=== PATIENT | female | born 1970 | race Caucasian/White ===

== ENCOUNTER 2021-08-30 10:40 | Inpatient (IN) | payer BC, OTHER ==
--- NOTE | 2021-08-30 10:35 | EDM.PDOC ---
ED HPI GENERAL MEDICAL PROBLEM - General Chief Complaint: General Stated Complaint: FLU-LIKE SYMPTOMS, FAINTING Time Seen by Provider: 08/30/21 10:35 Source of Information: Reports: Patient, EMS, Old Records, RN, RN Notes Reviewed History Limitations: Reports: No Limitations - History of Present Illness INITIAL COMMENTS - FREE TEXT/NARRATIVE: Pt arrives from home by ambulance with c/o 4 days duration of fevers, gen. body aches, nausea, diarrhea, shortness of breath, and recurrent syncope & near syncope. Pt states she has been able to keep down some water and toast, but has watery diarrhea shortly after eating or drinking anything. Pt states she has been profoundly weak and fatigued and has not been out of bed much for the past few days. Denies cough or chest pain. Pt is on chronic Coumadin therapy. Onset: Gradual Duration: Day(s): (4) Severity: Severe Improves with: Reports: None Worsens with: Reports: None Associated Symptoms: Reports: No Other Symptoms Generalized Pain Score (Numeric/FACES): 10 - Related Data Allergies Allergy/AdvReac Type Severity Reaction Status Date / Time diclofenac sodium Allergy Rash Verified 02/27/15 21:53 [From Voltaren] metoclopramide HCl Allergy Muscle Verified 04/18/15 21:18 [From Reglan] Aches Home Meds: Home Meds Famotidine [Pepcid AC] 20 mg PO BID 04/18/15 [History] Lisinopril 40 mg PO DAILY 04/18/15 [History] Warfarin Sodium 5 mg PO DAILY 04/18/15 [History] traMADol HCl [Tramadol HCl] 50 mg PO ASDIRECTED PRN 04/18/15 [History] Budesonide/Formoterol [Symbicort 160-4.5 MCG] 1 puff IH ASDIRECTED 08/30/21 [History] Warfarin [Coumadin] 7.5 mg PO ASDIRECTED 08/30/21 [History] Past Medical History HEENT History: Reports: Impaired Vision Cardiovascular History: Reports: Blood Clots/VTE/DVT, Hypertension Respiratory History: Reports: Asthma Other Respiratory History: DVT both legs letty. Gastrointestinal History: Reports: GERD Other Musculoskeletal History: fracture left elbow. and torn left rotator cuff. Endocrine/Metabolic History: Reports: Obesity/BMI 30+ - Past Surgical History Musculoskeletal Surgical History: Reports: Shoulder Surgery Social & Family History - Family History Family Medical History: No Pertinent Family History - Caffeine Use Caffeine Use: Reports: Coffee - Living Situation & Occupation Living situation: Reports: Single, with Family Occupation: Employed ED ROS GENERAL - Review of Systems Review Of Systems: Comprehensive ROS is negative, except as noted in HPI. ED EXAM, GENERAL - Physical Exam Exam: See Below Exam Limited By: No Limitations General Appearance: Alert, Anxious, Obese, Other (Acutely ill but non-toxic appearing) Eye Exam: Bilateral Eye: Normal Inspection (No scleral ictuerus) Nose: Normal Inspection, Normal Mucosa, No Blood Throat/Mouth: Normal Lips, Normal Voice, No Airway Compromise, Other (Dry oral mucosa) Head: Atraumatic, Normocephalic Neck: Normal Inspection Respiratory/Chest: No Respiratory Distress, Lungs Clear, No Accessory Muscle Use, Chest Non-Tender, Decreased Breath Sounds Cardiovascular: Regular Rate, Rhythm GI/Abdominal: Soft, Non-Tender, Abnormal Bowel Sounds (Slightly hyperactive) Back Exam: Normal Inspection Extremities: Normal Range of Motion, No Pedal Edema Neurological: Alert, Oriented, No Motor/Sensory Deficits Psychiatric: Anxious, Flat Affect Skin Exam: Warm, Dry, Intact, Normal Color, No Rash #1 Interpretation EKG Date: 08/30/21 Time: 11:03 Rhythm: Other (SR) Rate (Beats/Min): 87 [place]: Normal P-Wave: Present QRS: Normal ST-T: Normal QT: Normal Comparison: NA - No Prior EKG Course - Vital Signs Last Recorded V/S: Last Vital Signs Temp 101.6 F H 08/30/21 10:51 Pulse 88 08/30/21 10:51 Resp 26 H 08/30/21 10:51 BP 115/63 08/30/21 10:51 Pulse Ox 91 L 08/30/21 10:51 - Orders/Labs/Meds Orders: Active Orders 24 hr Category Date Time Status EKG 12 Lead [EKG Documentation Completion] [RC] STAT Care 08/30/21 10:37 Active Peripheral IV Care [RC] . DIRECTED Care 08/30/21 10:38 Active Chest 1V Frontal [CR] Stat Exams 08/30/21 11:26 Ordered CULTURE BLOOD [BC] Stat Lab 08/30/21 10:55 Received CULTURE BLOOD [BC] Stat Lab 08/30/21 11:00 Received D Dimer [D-DIMER QUANTITATIVE] [COAG] Stat Lab 08/30/21 11:00 Received FERRITIN [CHEM] Stat Lab 08/30/21 11:00 Received UA RFX ELVIRA AND CULT IF INDIC [URIN] Stat Lab 08/30/21 10:37 Ordered Sodium Chloride 0.9% [Normal Saline] 1,000 ml Med 08/30/21 11:25 Active IV .BOLUS Sodium Chloride 0.9% [Saline Flush] Med 08/30/21 10:38 Active 10 ml FLUSH ASDIRECTED PRN Blood Culture x2 Reflex Set [OM.PC] Stat Oth 08/30/21 10:36 Ordered Peripheral IV Insertion Adult [OM.PC] Stat Oth 08/30/21 10:37 Ordered Medication Orders Sodium Chloride (Normal Saline) 1,000 mls @ 999 mls/hr IV .BOLUS ONE Stop: 08/30/21 12:25 Last Admin: 08/30/21 11:33 Dose: 999 mls/hr Documented by: MAGO Sodium Chloride (Sodium Chloride 0.9% 10 Ml Syringe) 10 ml FLUSH ASDIRECTED PRN PRN Reason: Keep Vein Open Labs: Laboratory Tests 08/30/21 08/30/21 08/30/21 Range/Units 10:40 11:00 11:00 WBC 2.8 L (5.0-10.0) 10^3/uL RBC 4.61 (4.2-5.4) 10^6/uL Hgb 13.7 (12.0-16.0) g/dL Hct 40.4 (37.0-47.0) % MCV 87.6 D (80-100) fL MCH 29.7 (27.0-34.0) pg MCHC 33.9 (33.0-35.0) g/dL Plt Count 135 L D (150-450) 10^3/uL Neut % (Auto) 76.4 H (42.2-75.2) % Lymph % (Auto) 16.7 L (20.5-50.1) % [place] % (Auto) 6.9 (2-8) % Eos % (Auto) 0.0 L (1.0-3.0) % Baso % (Auto) 0.0 (0.0-1.0) % PT (9.0-12.0) SEC INR (0.9-1.2) APTT (22.0-34.0) SEC Sodium 127 L (136-145) mmol/L Potassium 3.4 L (3.5-5.1) mmol/L Chloride 92 L (98-107) mmol/L Carbon Dioxide 26 (21-32) mmol/L Anion Gap 12.4 (7-13) mEq/L BUN 16 (7-18) mg/dL Creatinine 1.06 H (0.55-1.02) mg/dL Est Cr Clr Drug Dosing 57.46 mL/min Estimated GFR (MDRD) 54 BUN/Creatinine Ratio 15.1 (No establ ref range) Glucose 108 H (70-99) mg/dL Lactic Acid (0.4-2.0) mmol/L Calcium 8.1 L (8.5-10.1) mg/dL Total Bilirubin 0.3 (0.2-1.0) mg/dL AST 43 H (15-37) U/L ALT 45 (14-59) U/L Alkaline Phosphatase 55 (46-116) U/L Troponin I High Sens 43 (<=51) pg/mL C-Reactive Protein 4.3 H (0.0-0.9) mg/dL Total Protein 7.1 (6.4-8.2) g/dL Albumin 2.9 L (3.4-5.0) g/dL Globulin 4.2 Albumin/Globulin Ratio 0.69 Influenza Type A RNA Negative (NEGATIVE) Influenza Type B RNA Negative (NEGATIVE) SARS-CoV-2 RNA (BILLY) Positive H (NEGATIVE) 08/30/21 08/30/21 Range/Units 11:00 11:00 WBC (5.0-10.0) 10^3/uL RBC (4.2-5.4) 10^6/uL Hgb (12.0-16.0) g/dL Hct (37.0-47.0) % MCV (80-100) fL MCH (27.0-34.0) pg MCHC (33.0-35.0) g/dL Plt Count (150-450) 10^3/uL Neut % (Auto) (42.2-75.2) % Lymph % (Auto) (20.5-50.1) % [place] % (Auto) (2-8) % Eos % (Auto) (1.0-3.0) % Baso % (Auto) (0.0-1.0) % PT 13.9 H (9.0-12.0) SEC INR 1.4 H (0.9-1.2) APTT 39.7 H (22.0-34.0) SEC Sodium (136-145) mmol/L Potassium (3.5-5.1) mmol/L Chloride (98-107) mmol/L Carbon Dioxide (21-32) mmol/L Anion Gap (7-13) mEq/L BUN (7-18) mg/dL Creatinine (0.55-1.02) mg/dL Est Cr Clr Drug Dosing mL/min Estimated GFR (MDRD) BUN/Creatinine Ratio (No establ ref range) Glucose (70-99) mg/dL Lactic Acid 0.8 (0.4-2.0) mmol/L Calcium (8.5-10.1) mg/dL Total Bilirubin (0.2-1.0) mg/dL AST (15-37) U/L ALT (14-59) U/L Alkaline Phosphatase (46-116) U/L Troponin I High Sens (<=51) pg/mL C-Reactive Protein (0.0-0.9) mg/dL Total Protein (6.4-8.2) g/dL Albumin (3.4-5.0) g/dL Globulin Albumin/Globulin Ratio Influenza Type A RNA (NEGATIVE) Influenza Type B RNA (NEGATIVE) SARS-CoV-2 RNA (BILLY) (NEGATIVE) Meds: Medications Generic Name Dose Route Start Last Admin Trade Name Freq PRN Reason Stop Dose Admin Sodium Chloride 1,000 mls @ 999 mls/hr 08/30/21 11:25 08/30/21 11:33 Normal Saline IV 08/30/21 12:25 999 mls/hr .BOLUS ONE Administration Sodium Chloride 10 ml 08/30/21 10:38 Sodium Chloride 0.9% 10 Ml Syringe FLUSH ASDIRECTED PRN Keep Vein Open Discontinued Medications Generic Name Dose Route Start Last Admin Trade Name Freq PRN Reason Stop Dose Admin Acetaminophen 975 mg 08/30/21 10:49 Acetaminophen 325 Mg Tab PO 08/30/21 10:50 NOW ONE Ondansetron HCl 4 mg 08/30/21 10:49 08/30/21 11:33 Ondansetron 4 Mg/2 Ml Sdv IV 08/30/21 10:50 4 mg ONETIME ONE Administration Departure - Departure Time of Disposition: 11:49 (admitted to Dr. Peterson) Disposition: Admitted As Inpatient 64 Condition: Fair Clinical Impression: Dehydration, Hyponatremia Syncope Qualifiers: Syncope type: vasovagal syncope Qualified Code(s): R55 - Syncope and collapse - Discharge Information *PRESCRIPTION DRUG MONITORING PROGRAM REVIEWED*: Not Applicable *COPY OF PRESCRIPTION DRUG MONITORING REPORT IN PATIENT KENNA: Not Applicable Forms: ED Department Discharge Sepsis Event Note (ED) - Focused Exam Vital Signs: Vital Signs Temp Pulse Resp BP Pulse Ox 08/30/21 10:51 101.6 F H 88 26 H 115/63 91 L - My Orders Last 24 Hours: My Active Orders 08/30/21 10:36 Blood Culture x2 Reflex Set [OM.PC] Stat 08/30/21 10:37 EKG 12 Lead [EKG Documentation Completion] [RC] STAT UA RFX ELVIRA AND CULT IF INDIC [URIN] Stat Peripheral IV Insertion Adult [OM.PC] Stat 08/30/21 10:38 Peripheral IV Care [RC] . DIRECTED Sodium Chloride 0.9% [Saline Flush] 10 ml FLUSH ASDIRECTED PRN 08/30/21 10:55 CULTURE BLOOD [BC] Stat 08/30/21 11:00 CULTURE BLOOD [BC] Stat D Dimer [D-DIMER QUANTITATIVE] [COAG] Stat FERRITIN [CHEM] Stat 08/30/21 11:25 Sodium Chloride 0.9% [Normal Saline] 1,000 ml IV .BOLUS 08/30/21 11:26 Chest 1V Frontal [CR] Stat - Assessment/Plan Last 24 Hours: My Active Orders 08/30/21 10:36 Blood Culture x2 Reflex Set [OM.PC] Stat 08/30/21 10:37 EKG 12 Lead [EKG Documentation Completion] [RC] STAT UA RFX ELVIRA AND CULT IF INDIC [URIN] Stat Peripheral IV Insertion Adult [OM.PC] Stat 08/30/21 10:38 Peripheral IV Care [RC] . DIRECTED Sodium Chloride 0.9% [Saline Flush] 10 ml FLUSH ASDIRECTED PRN 08/30/21 10:55 CULTURE BLOOD [BC] Stat 08/30/21 11:00 CULTURE BLOOD [BC] Stat D Dimer [D-DIMER QUANTITATIVE] [COAG] Stat FERRITIN [CHEM] Stat 08/30/21 11:25 Sodium Chloride 0.9% [Normal Saline] 1,000 ml IV .BOLUS 08/30/21 11:26 Chest 1V Frontal [CR] Stat
[2021-08-30] MEDS ORDERED: Acetaminophen 325 MG Tab PO ONE (10:49)
[2021-08-30] MEDS ORDERED: Ondansetron 4 MG/2 ML SDV IV ONE (10:49)
[2021-08-30 11:24] LABS: CORONAVIRUS COVID-19 NAA POSITIVE (NEGATIVE)
[2021-08-30] MEDS ORDERED: Sodium Chloride 0.9% 1,000 ML IV ONE (11:25)
[2021-08-30 11:26] LABS: PTT,PARTIAL THROMBOPLSTIN TIME 39.7 SEC (22.0-34.0)
[2021-08-30 11:29] LABS: ANION GAP 12.4 mEq/L (7-13)
--- NOTE | 2021-08-30 12:58 | PCM.HP ---
H&P History of Present Illness - General Date of Service: 08/30/21 Admit Problem/Dx: Admission Diagnosis/Problem Admission Diagnosis/Problem Gastroenteritis Source of Information: Patient, Provider History Limitations: Reports: No Limitations - History of Present Illness Initial Comments - Free Text/Narative: Betty is a 51-year-old woman with a past medical history significant for peripheral DVTs, pulmonary emboli, morbid obesity with a BMI of 51, essential hypertension, chronic asthma who presented to the emergency department on 08/30/2021 with complaints of acute onset weakness and mild nausea. Of note, she is unvaccinated against COVID-19. While in the emergency department her sodium was found to be low and she had borderline low potassium. She had been complain ing of having diarrhea up to 10 times daily. This is been going on for 1-2 days. She tried to drink fluids at home but was noting minimal appetite and worsening symptoms. She then presented to the emergency department for evaluation. While in the ED she was found to be Covid positive. She was not requiring any oxygen. She was admitted to the hospital for further evaluation of treatment of COVID-19. On the floor T-max 103.9. Onset of Symptoms: Reports: Today, Sudden Generalized Pain Score (Numeric/FACES): 10 - Related Data Allergies/Adverse Reactions: Allergies Allergy/AdvReac Type Severity Reaction Status Date / Time adhesive tape Allergy Rash Verified 08/30/21 12:41 diclofenac sodium Allergy Rash Verified 02/27/15 21:53 [From Voltaren] metoclopramide HCl Allergy Muscle Verified 04/18/15 21:18 [From Reglan] Aches Home Medications: Home Meds Famotidine [Pepcid AC] 20 mg PO DAILY 04/18/15 [History] Lisinopril 40 mg PO DAILY 04/18/15 [History] Warfarin Sodium 5 mg PO .THURSFRISATSUN 04/18/15 [History] Acetaminophen 500 mg PO Q4HR PRN 08/30/21 [History] Albuterol Sulfate [Albuterol Sulfate Hfa] 2 puff INH Q4HR PRN 08/30/21 [History] Budesonide/Formoterol [Symbicort 160-4.5 MCG] 2 puff IH BID 08/30/21 [History] Cyanocobalamin (Vitamin B-12) [Vitamin B-12] 1,000 mcg PO DAILY 08/30/21 [History] Patient's Own Medication [Ptom] 1 tab PO DAILY 08/30/21 [History] Warfarin [Coumadin] 7.5 mg PO .MONTUEWED 08/30/21 [History] Past Medical History HEENT History: Reports: Impaired Vision Cardiovascular History: Reports: Blood Clots/VTE/DVT, Hypertension Respiratory History: Reports: Asthma Other Respiratory History: DVT both legs letty. Gastrointestinal History: Reports: GERD Other Musculoskeletal History: fracture left elbow. and torn left rotator cuff. Endocrine/Metabolic History: Reports: Obesity/BMI 30+ - Infectious Disease History Infectious Disease History: Reports: Other (See Below) (unvaccinated against covid 19) - Past Surgical History HEENT Surgical History: Reports: Tonsillectomy Musculoskeletal Surgical History: Reports: Shoulder Surgery Social & Family History - Family History Family Medical History: No Pertinent Family History - Tobacco Use Tobacco Use Status *Q: Never Tobacco User - Caffeine Use Caffeine Use: Reports: None - Alcohol Use Alcohol Use History: Yes Alcohol Use Frequency: Rarely - Recreational Drug Use Recreational Drug Use: No - Living Situation & Occupation Living situation: Reports: Single, with Family Occupation: Employed H&P Review of Systems - Review of Systems: Review Of Systems: See Below General: Reports: Chills, Weakness, Fatigue, Decreased Appetite. Denies: Fever HEENT: Reports: No Symptoms Pulmonary: Reports: Cough. Denies: Shortness of Breath, Wheezing, Pleuritic Chest Pain, Sputum Cardiovascular: Reports: No Symptoms Gastrointestinal: Reports: Diarrhea, Decreased Appetite, Nausea. Denies: Black Stool, Bloody Stool, Distension, Vomiting Genitourinary: Reports: No Symptoms Musculoskeletal: Reports: Other (chronic pain diffuse) Skin: Reports: No Symptoms Psychiatric: Reports: No Symptoms Neurological: Reports: No Symptoms Hematologic/Lymphatic: Reports: No Symptoms Immunologic: Reports: No Symptoms Exam - Exam Exam: See Below - Vital Signs Vital Signs: Last Vital Signs Temp 101.6 F H 08/30/21 11:44 Pulse 88 08/30/21 10:51 Resp 26 H 08/30/21 10:51 BP 115/63 08/30/21 10:51 Pulse Ox 91 L 08/30/21 10:51 Weight: 316 lb - Exam Quality Assessment: DVT Prophylaxis. No: Supplemental Oxygen General: Oriented, Cooperative, Mild Distress HEENT: EOMI, Pupils Equal, Pupils Reactive Neck: Supple Lungs: Decreased Breath Sounds (diminished breath sounds throughout entire bilateral lung schmidt) Cardiovascular: Regular Rate, Regular Rhythm, Normal S1, Normal S2, Systolic Murmur (2/6 systolic). No: Tachycardia GI/Abdominal Exam: Soft, Non-Tender, Other (Obese. distant bowel sounds secondary to body habitus) (Female) Exam: Deferred Rectal (Female) Exam: Deferred Extremities: Non-Tender, No Pedal Edema, Other (brace on RLE. ) Skin: Warm, Dry Neuro Extensive - Mental Status: Alert, Oriented x3, Normal Mood/Affect, Normal Cognition Psychiatric: Alert, Normal Affect, Normal Mood - Patient Data Lab Results Last 24 hrs: Laboratory Results - last 24 hr 08/30/21 08/30/21 08/30/21 Range/Units 10:40 11:00 11:00 WBC 2.8 L (5.0-10.0) 10^3/uL RBC 4.61 (4.2-5.4) 10^6/uL Hgb 13.7 (12.0-16.0) g/dL Hct 40.4 (37.0-47.0) % MCV 87.6 D (80-100) fL MCH 29.7 (27.0-34.0) pg MCHC 33.9 (33.0-35.0) g/dL Plt Count 135 L D (150-450) 10^3/uL Neut % (Auto) 76.4 H (42.2-75.2) % Lymph % (Auto) 16.7 L (20.5-50.1) % [place] % (Auto) 6.9 (2-8) % Eos % (Auto) 0.0 L (1.0-3.0) % Baso % (Auto) 0.0 (0.0-1.0) % PT (9.0-12.0) SEC INR (0.9-1.2) APTT (22.0-34.0) SEC D-Dimer, Quantitative 521 H (0-400) ng/mL Sodium (136-145) mmol/L Potassium (3.5-5.1) mmol/L Chloride (98-107) mmol/L Carbon Dioxide (21-32) mmol/L Anion Gap (7-13) mEq/L BUN (7-18) mg/dL Creatinine (0.55-1.02) mg/dL Est Cr Clr Drug Dosing mL/min Estimated GFR (MDRD) BUN/Creatinine Ratio (No establ ref range) Glucose (70-99) mg/dL Lactic Acid (0.4-2.0) mmol/L Calcium (8.5-10.1) mg/dL Ferritin (8-252) mg/mL Total Bilirubin (0.2-1.0) mg/dL AST (15-37) U/L ALT (14-59) U/L Alkaline Phosphatase (46-116) U/L Troponin I High Sens (<=51) pg/mL C-Reactive Protein (0.0-0.9) mg/dL Total Protein (6.4-8.2) g/dL Albumin (3.4-5.0) g/dL Globulin Albumin/Globulin Ratio Influenza Type A RNA Negative (NEGATIVE) Influenza Type B RNA Negative (NEGATIVE) SARS-CoV-2 RNA (BILLY) Positive H (NEGATIVE) 08/30/21 08/30/21 08/30/21 Range/Units 11:00 11:00 11:00 WBC (5.0-10.0) 10^3/uL RBC (4.2-5.4) 10^6/uL Hgb (12.0-16.0) g/dL Hct (37.0-47.0) % MCV (80-100) fL MCH (27.0-34.0) pg MCHC (33.0-35.0) g/dL Plt Count (150-450) 10^3/uL Neut % (Auto) (42.2-75.2) % Lymph % (Auto) (20.5-50.1) % [place] % (Auto) (2-8) % Eos % (Auto) (1.0-3.0) % Baso % (Auto) (0.0-1.0) % PT 13.9 H (9.0-12.0) SEC INR 1.4 H (0.9-1.2) APTT 39.7 H (22.0-34.0) SEC D-Dimer, Quantitative (0-400) ng/mL Sodium 127 L (136-145) mmol/L Potassium 3.4 L (3.5-5.1) mmol/L Chloride 92 L (98-107) mmol/L Carbon Dioxide 26 (21-32) mmol/L Anion Gap 12.4 (7-13) mEq/L BUN 16 (7-18) mg/dL Creatinine 1.06 H (0.55-1.02) mg/dL Est Cr Clr Drug Dosing 57.46 mL/min Estimated GFR (MDRD) 54 BUN/Creatinine Ratio 15.1 (No establ ref range) Glucose 108 H (70-99) mg/dL Lactic Acid 0.8 (0.4-2.0) mmol/L Calcium 8.1 L (8.5-10.1) mg/dL Ferritin (8-252) mg/mL Total Bilirubin 0.3 (0.2-1.0) mg/dL AST 43 H (15-37) U/L ALT 45 (14-59) U/L Alkaline Phosphatase 55 (46-116) U/L Troponin I High Sens 43 (<=51) pg/mL C-Reactive Protein 4.3 H (0.0-0.9) mg/dL Total Protein 7.1 (6.4-8.2) g/dL Albumin 2.9 L (3.4-5.0) g/dL Globulin 4.2 Albumin/Globulin Ratio 0.69 Influenza Type A RNA (NEGATIVE) Influenza Type B RNA (NEGATIVE) SARS-CoV-2 RNA (BILLY) (NEGATIVE) 08/30/21 Range/Units 11:00 WBC (5.0-10.0) 10^3/uL RBC (4.2-5.4) 10^6/uL Hgb (12.0-16.0) g/dL Hct (37.0-47.0) % MCV (80-100) fL MCH (27.0-34.0) pg MCHC (33.0-35.0) g/dL Plt Count (150-450) 10^3/uL Neut % (Auto) (42.2-75.2) % Lymph % (Auto) (20.5-50.1) % [place] % (Auto) (2-8) % Eos % (Auto) (1.0-3.0) % Baso % (Auto) (0.0-1.0) % PT (9.0-12.0) SEC INR (0.9-1.2) APTT (22.0-34.0) SEC D-Dimer, Quantitative (0-400) ng/mL Sodium (136-145) mmol/L Potassium (3.5-5.1) mmol/L Chloride (98-107) mmol/L Carbon Dioxide (21-32) mmol/L Anion Gap (7-13) mEq/L BUN (7-18) mg/dL Creatinine (0.55-1.02) mg/dL Est Cr Clr Drug Dosing mL/min Estimated GFR (MDRD) BUN/Creatinine Ratio (No establ ref range) Glucose (70-99) mg/dL Lactic Acid (0.4-2.0) mmol/L Calcium (8.5-10.1) mg/dL Ferritin 942 H (8-252) mg/mL Total Bilirubin (0.2-1.0) mg/dL AST (15-37) U/L ALT (14-59) U/L Alkaline Phosphatase (46-116) U/L Troponin I High Sens (<=51) pg/mL C-Reactive Protein (0.0-0.9) mg/dL Total Protein (6.4-8.2) g/dL Albumin (3.4-5.0) g/dL Globulin Albumin/Globulin Ratio Influenza Type A RNA (NEGATIVE) Influenza Type B RNA (NEGATIVE) SARS-CoV-2 RNA (BILLY) (NEGATIVE) Result Diagrams: 08/30/21 11:00 08/30/21 11:00 Problem List Initiated/Reviewed/Updated: Yes Orders Last 24hrs: Active Orders 24 hr Category Date Time Status Admission Diagnosis [ADT] Stat ADT 08/30/21 11:49 Ordered Admission Status [Patient Status] [ADT] Routine ADT 08/30/21 11:49 Active Chest 1V Frontal [CR] Stat Exams 08/30/21 11:26 Taken CULTURE BLOOD [BC] Stat Lab 08/30/21 10:55 Received CULTURE BLOOD [BC] Stat Lab 08/30/21 11:00 Received UA RFX ELVIRA AND CULT IF INDIC [URIN] Stat Lab 08/30/21 10:37 Ordered Sodium Chloride 0.9% [Saline Flush] Med 08/30/21 10:38 Active 10 ml FLUSH ASDIRECTED PRN Blood Culture x2 Reflex Set [OM.PC] Stat Oth 08/30/21 10:36 Ordered Peripheral IV Insertion Adult [OM.PC] Stat Oth 08/30/21 10:37 Ordered Medication Orders Sodium Chloride (Sodium Chloride 0.9% 10 Ml Syringe) 10 ml FLUSH ASDIRECTED PRN PRN Reason: Keep Vein Open Assessment/Plan Comment:: ACUTE CONDITIONS: acute COVID 19 viral pneumonia acute gastroenteritis secondary to above hypovolemic hyponatremia 2/2 above Hypokalemia 2/2 above - on admit: febrile with tmax 103.9. Na 127. K 3.4 - O2 sats >90% on room air - unvaccinated Plan: - currently doesn't qualify for remdesivir or dexamethasone - imodium PRN for diarrhea - continue LR 1L at 125mL/hr - replace K with IV in ED - recheck labs early am - IS 10 times in a row every hour while awake - recommend covid 19 vaccination - continue warfarin Rx to dose with INR goal 2-3 given hx of DVT/PE and current COVID 19 CHRONIC CONDITIONS: - morbid obesity: BMI 45.7 on admit - chronic asthma: continue home inhalers - Essential HTN: continue lisinopril 40mg once daily - Chronic pain, diffuse: continue acetaminophen at home dose - hx of DVT/PE: warfarin Rx to dose with goal INR 23 - GERD without esophagitis: continue home med Code status: Full Code DVT prophylaxis: warfarin Rx to dose
--- NOTE | 2021-08-30 13:12 | CR ---
EXAMINATION: Chest 1V Frontal SEX: Female AGE: 51 years CLINICAL HISTORY: 51-year-old obese female with syncope. Comparison exam 01 May 2007. COVID positive. INTERPRETATION: Abnormal. 1. *Subtle peripheral "groundglass" densities right upper and left lower lobes, new since comparison 01 May 2007. 2. Old lingular fibrosis. 3. Generally good inspiratory effort. Normal cardiac silhouette (size and configuration). 4. No pulmonary vascular congestion, new cephalization of flow, alveolar edema or dependent pleural effusion. 5. No suspicious new parenchymal lung mass lesion or hilar/mediastinal lymphadenopathy. Normal midline tracheal bronchial airway. 6. New subchondral cystic lesions both humeral heads.
[2021-08-30] MEDS ORDERED: Polyethylene Glycol 3350 Powder 17 GM Packet PO PRN (13:14)
[2021-08-30] MEDS ORDERED: Lactated Ringers 1,000 ML IV SCH ×3 (13:15→22:00)
[2021-08-30] MEDS ORDERED: Loperamide 2 MG Cap PO PRN (13:18)
[2021-08-30] MEDS ORDERED: Acetaminophen 500 MG Tab PO ONE (13:39)
[2021-08-30] MEDS: Sodium Chloride 0.9% 10 ML Syringe FLUSH PRN (13:39)
[2021-08-30] MEDS ORDERED: Metoprolol Tartrate 25 MG Tab PO SCH (19:15)
[2021-08-30 19:26] LABS: ANION GAP 12.3 mEq/L (7-13)
[2021-08-30] MEDS ORDERED: Magnesium Sulfate/Water 2 GM in Premix Bag 1 BAG IV ONE (19:42)
[2021-08-30] MEDS ORDERED: Potassium Chloride 10 MEQ Tab.ER PO ONE (19:43)
[2021-08-30] MEDS: Acetaminophen 325 MG Tab PO PRN ×2 (19:43→23:17)
[2021-08-30] MEDS ORDERED: Metoprolol Tartrate 5 MG/5 ML SDV IVPUSH ONE ×2 (19:43→21:47)
[2021-08-30] MEDS ORDERED: REMDESIVIR 200 MG in Sodium Chloride 0.9% 250 ML IV ONE (20:01)
[2021-08-30] MEDS: Dexamethasone 6 MG TABLET PO SCH (20:46)
[2021-08-30] MEDS: Formoterol/Mometasone 200-5 MCG 8.8 GM Inhaler IH SCH (20:47)
--- NOTE | 2021-08-30 21:17 | PCM.SN.2 ---
- Free Text/Narrative Note: Was notified by nursing staff that patient was having increasing heart rates. Ordered stat EKG which showed atrial fibrillation with ventricular rates in the 130s 140s. Went into examined patient. She was resting comfortably no acute distress. Patient denied any palpitations, chest pains or pressures, shortness of breath. She states that she has no history of atrial fibrillation denies any cardiac history. Ordered 5 mg IV metoprolol and 25 mg p.o. metoprolol. Ordered stat magnesium and potassium and repleted accordingly. Addendumwas paged by nursing staff that patient was hypoxic requiring 1 to 2 L to maintain oxygen saturations of 90 to 91%. As noted in H&P patient is COVID- 19 positive. Discussed with patient risks and benefits of remdesivir and steroid treatment and patient was agreeable. Ordered remdesivir and p.o. dexamethasone. We will continue monitor patient closely. Patient's heart rate has improved with as needed IV metoprolol we will continue to monitor.
[2021-08-30] MEDS ORDERED: Diltiazem 25 MG/5 ML SDV IVPUSH ONE (22:39)
[2021-08-30] MEDS ORDERED: Diltiazem 125 MG in Sodium Chloride 0.9% 100 ML IV SCH (22:45)
[2021-08-30] MEDS: Metoprolol Tartrate 25 MG Tab PO SCH (23:15)
[2021-08-30] MEDS ORDERED: Lactated Ringers 500 ML IV ONE (23:45)
--- NOTE | 2021-08-31 06:27 | PCM.PN ---
- General Info Date of Service: 08/31/21 Admission Dx/Problem (Free Text): Admission Diagnosis/Problem Admission Diagnosis/Problem Gastroenteritis Subjective Update: See previous note. In brief overnight patient had acute hypoxic respiratory failure secondary to COVID-19 pneumonia. Patient was placed on dexamethasone and remdesivir. She also had atrial fibrillation with rapid ventricular response. Responded well to IV metoprolol and p.o. metoprolol and IV Cardizem. This a.m. patient states that her breathing is stable worse than yesterday but better than overnight. She denies any palpitations. States that she feels a discomfort when taking a deep breath. Denies any abdominal pain, nausea or vomiting. States that her diarrhea is significantly improved. Review of systems is negative except as listed above. - Patient Data Vitals - Most Recent: Last Vital Signs Temp 98.6 F 08/31/21 03:00 Pulse 107 H 08/31/21 03:00 Resp 22 H 08/31/21 03:00 BP 94/50 L 08/31/21 03:00 Pulse Ox 94 L 08/31/21 03:00 Weight - Most Recent: 300 lb 9.6 oz I&O - Last 24 Hours: Intake & Output 08/30/21 08/30/21 08/31/21 14:59 22:59 06:59 Intake Total 1000 360 Balance 1000 360 Lab Results Last 24 Hours: Laboratory Results - last 24 hr 08/30/21 08/30/21 08/30/21 Range/Units 10:40 11:00 11:00 WBC 2.8 L (5.0-10.0) 10^3/uL RBC 4.61 (4.2-5.4) 10^6/uL Hgb 13.7 (12.0-16.0) g/dL Hct 40.4 (37.0-47.0) % MCV 87.6 D (80-100) fL MCH 29.7 (27.0-34.0) pg MCHC 33.9 (33.0-35.0) g/dL Plt Count 135 L D (150-450) 10^3/uL Neut % (Auto) 76.4 H (42.2-75.2) % Lymph % (Auto) 16.7 L (20.5-50.1) % [place] % (Auto) 6.9 (2-8) % Eos % (Auto) 0.0 L (1.0-3.0) % Baso % (Auto) 0.0 (0.0-1.0) % PT (9.0-12.0) SEC INR (0.9-1.2) APTT (22.0-34.0) SEC D-Dimer, Quantitative 521 H (0-400) ng/mL Sodium (136-145) mmol/L Potassium (3.5-5.1) mmol/L Chloride (98-107) mmol/L Carbon Dioxide (21-32) mmol/L Anion Gap (7-13) mEq/L BUN (7-18) mg/dL Creatinine (0.55-1.02) mg/dL Est Cr Clr Drug Dosing mL/min Estimated GFR (MDRD) BUN/Creatinine Ratio (No establ ref range) Glucose (70-99) mg/dL Lactic Acid (0.4-2.0) mmol/L Calcium (8.5-10.1) mg/dL Magnesium (1.8-2.4) mg/dL Ferritin (8-252) mg/mL Total Bilirubin (0.2-1.0) mg/dL AST (15-37) U/L ALT (14-59) U/L Alkaline Phosphatase (46-116) U/L Troponin I High Sens (<=51) pg/mL C-Reactive Protein (0.0-0.9) mg/dL Total Protein (6.4-8.2) g/dL Albumin (3.4-5.0) g/dL Globulin Albumin/Globulin Ratio Influenza Type A RNA Negative (NEGATIVE) Influenza Type B RNA Negative (NEGATIVE) SARS-CoV-2 RNA (BILLY) Positive H (NEGATIVE) 08/30/21 08/30/21 08/30/21 Range/Units 11:00 11:00 11:00 WBC (5.0-10.0) 10^3/uL RBC (4.2-5.4) 10^6/uL Hgb (12.0-16.0) g/dL Hct (37.0-47.0) % MCV (80-100) fL MCH (27.0-34.0) pg MCHC (33.0-35.0) g/dL Plt Count (150-450) 10^3/uL Neut % (Auto) (42.2-75.2) % Lymph % (Auto) (20.5-50.1) % [place] % (Auto) (2-8) % Eos % (Auto) (1.0-3.0) % Baso % (Auto) (0.0-1.0) % PT 13.9 H (9.0-12.0) SEC INR 1.4 H (0.9-1.2) APTT 39.7 H (22.0-34.0) SEC D-Dimer, Quantitative (0-400) ng/mL Sodium 127 L (136-145) mmol/L Potassium 3.4 L (3.5-5.1) mmol/L Chloride 92 L (98-107) mmol/L Carbon Dioxide 26 (21-32) mmol/L Anion Gap 12.4 (7-13) mEq/L BUN 16 (7-18) mg/dL Creatinine 1.06 H (0.55-1.02) mg/dL Est Cr Clr Drug Dosing 57.46 mL/min Estimated GFR (MDRD) 54 BUN/Creatinine Ratio 15.1 (No establ ref range) Glucose 108 H (70-99) mg/dL Lactic Acid 0.8 (0.4-2.0) mmol/L Calcium 8.1 L (8.5-10.1) mg/dL Magnesium (1.8-2.4) mg/dL Ferritin (8-252) mg/mL Total Bilirubin 0.3 (0.2-1.0) mg/dL AST 43 H (15-37) U/L ALT 45 (14-59) U/L Alkaline Phosphatase 55 (46-116) U/L Troponin I High Sens 43 (<=51) pg/mL C-Reactive Protein 4.3 H (0.0-0.9) mg/dL Total Protein 7.1 (6.4-8.2) g/dL Albumin 2.9 L (3.4-5.0) g/dL Globulin 4.2 Albumin/Globulin Ratio 0.69 Influenza Type A RNA (NEGATIVE) Influenza Type B RNA (NEGATIVE) SARS-CoV-2 RNA (BILLY) (NEGATIVE) 08/30/21 08/30/21 08/30/21 Range/Units 11:00 11:00 18:47 WBC (5.0-10.0) 10^3/uL RBC (4.2-5.4) 10^6/uL Hgb (12.0-16.0) g/dL Hct (37.0-47.0) % MCV (80-100) fL MCH (27.0-34.0) pg MCHC (33.0-35.0) g/dL Plt Count (150-450) 10^3/uL Neut % (Auto) (42.2-75.2) % Lymph % (Auto) (20.5-50.1) % [place] % (Auto) (2-8) % Eos % (Auto) (1.0-3.0) % Baso % (Auto) (0.0-1.0) % PT (9.0-12.0) SEC INR (0.9-1.2) APTT (22.0-34.0) SEC D-Dimer, Quantitative (0-400) ng/mL Sodium 128 L (136-145) mmol/L Potassium 3.3 L (3.5-5.1) mmol/L Chloride 93 L (98-107) mmol/L Carbon Dioxide 26 (21-32) mmol/L Anion Gap 12.3 (7-13) mEq/L BUN (7-18) mg/dL Creatinine (0.55-1.02) mg/dL Est Cr Clr Drug Dosing mL/min Estimated GFR (MDRD) BUN/Creatinine Ratio (No establ ref range) Glucose (70-99) mg/dL Lactic Acid (0.4-2.0) mmol/L Calcium (8.5-10.1) mg/dL Magnesium 1.9 (1.8-2.4) mg/dL Ferritin 942 H (8-252) mg/mL Total Bilirubin (0.2-1.0) mg/dL AST (15-37) U/L ALT (14-59) U/L Alkaline Phosphatase (46-116) U/L Troponin I High Sens (<=51) pg/mL C-Reactive Protein (0.0-0.9) mg/dL Total Protein (6.4-8.2) g/dL Albumin (3.4-5.0) g/dL Globulin Albumin/Globulin Ratio Influenza Type A RNA (NEGATIVE) Influenza Type B RNA (NEGATIVE) SARS-CoV-2 RNA (BILLY) (NEGATIVE) 08/30/21 Range/Units 18:47 WBC (5.0-10.0) 10^3/uL RBC (4.2-5.4) 10^6/uL Hgb (12.0-16.0) g/dL Hct (37.0-47.0) % MCV (80-100) fL MCH (27.0-34.0) pg MCHC (33.0-35.0) g/dL Plt Count (150-450) 10^3/uL Neut % (Auto) (42.2-75.2) % Lymph % (Auto) (20.5-50.1) % [place] % (Auto) (2-8) % Eos % (Auto) (1.0-3.0) % Baso % (Auto) (0.0-1.0) % PT (9.0-12.0) SEC INR (0.9-1.2) APTT (22.0-34.0) SEC D-Dimer, Quantitative (0-400) ng/mL Sodium (136-145) mmol/L Potassium (3.5-5.1) mmol/L Chloride (98-107) mmol/L Carbon Dioxide (21-32) mmol/L Anion Gap (7-13) mEq/L BUN (7-18) mg/dL Creatinine (0.55-1.02) mg/dL Est Cr Clr Drug Dosing mL/min Estimated GFR (MDRD) BUN/Creatinine Ratio (No establ ref range) Glucose (70-99) mg/dL Lactic Acid (0.4-2.0) mmol/L Calcium (8.5-10.1) mg/dL Magnesium 1.8 (1.8-2.4) mg/dL Ferritin (8-252) mg/mL Total Bilirubin (0.2-1.0) mg/dL AST (15-37) U/L ALT (14-59) U/L Alkaline Phosphatase (46-116) U/L Troponin I High Sens (<=51) pg/mL C-Reactive Protein (0.0-0.9) mg/dL Total Protein (6.4-8.2) g/dL Albumin (3.4-5.0) g/dL Globulin Albumin/Globulin Ratio Influenza Type A RNA (NEGATIVE) Influenza Type B RNA (NEGATIVE) SARS-CoV-2 RNA (BILLY) (NEGATIVE) Med Orders - Current: Current Medications Acetaminophen (Acetaminophen 325 Mg Tab) 650 mg PO Q4H PRN PRN Reason: Fever Last Admin: 08/30/21 23:17 Dose: 650 mg Documented by: Albuterol (Albuterol 6.7 Gm Inhaler) 0 gm INH Q4HR PRN PRN Reason: Shortness of Breath Dexamethasone (Dexamethasone 6 Mg Tablet) 6 mg PO DAILY [facility] Stop: 09/08/21 09:01 Last Admin: 08/30/21 20:46 Dose: 6 mg Documented by: Famotidine (Famotidine 20 Mg Tab) 20 mg PO DAILY [facility] Remdesivir 100 mg/ Sodium (Chloride) 100 mls @ 100 mls/hr IV Q24H [facility] Stop: 09/03/21 09:59 Lactated Ringer's (Ringers, Lactated) 1,000 mls @ 75 mls/hr IV ASDIRECTED [facility] Last Admin: 08/31/21 00:41 Dose: 75 mls/hr Documented by: Loperamide HCl (Loperamide 2 Mg Cap) 2 mg PO ASDIRECTED PRN PRN Reason: Diarrhea Metoprolol Tartrate (Metoprolol Tartrate 25 Mg Tab) 50 mg PO Q12H [facility] Last Admin: 08/30/21 23:15 Dose: 50 mg Documented by: Mometasone Furoate/Formoterol Fumar (Formoterol/Mometasone 200-5 Mcg 8.8 Gm Inhaler) 2 puff IH BID [facility] Last Admin: 08/30/21 20:47 Dose: 2 puff Documented by: Polyethylene Glycol (Polyethylene Glycol 3350 Powder 17 Gm Packet) 17 gm PO DAILY PRN PRN Reason: Constipation Sodium Chloride (Sodium Chloride 0.9% 10 Ml Syringe) 10 ml FLUSH ASDIRECTED PRN PRN Reason: Keep Vein Open Last Admin: 08/30/21 13:39 Dose: 10 ml Documented by: Warfarin Sodium (Pharmacy To Dose - Warfarin) 0 dose .XX ASDIRECTED [facility] Discontinued Medications Acetaminophen (Acetaminophen 325 Mg Tab) 975 mg PO NOW ONE Stop: 08/30/21 10:50 Last Admin: 08/30/21 11:44 Dose: Not Given Documented by: Acetaminophen (Acetaminophen 500 Mg Tab) 1,000 mg PO ONETIME ONE Stop: 08/30/21 13:40 Last Admin: 08/30/21 13:47 Dose: 1,000 mg Documented by: Diltiazem HCl (Diltiazem 25 Mg/5 Ml Sdv) 20 mg IVPUSH ONETIME ONE Stop: 08/30/21 22:40 Last Admin: 08/30/21 23:18 Dose: 20 mg Documented by: Sodium Chloride (Normal Saline) 1,000 mls @ 999 mls/hr IV .BOLUS ONE Stop: 08/30/21 12:25 Last Admin: 08/30/21 11:33 Dose: 999 mls/hr Documented by: Lactated Ringer's (Ringers, Lactated) 1,000 mls @ 125 mls/hr IV ASDIRECTED [facility] Stop: 08/30/21 21:14 Last Infusion: 08/30/21 21:58 Dose: Infused Documented by: Magnesium Sulfate 2 gm/ Premix 50 mls @ 25 mls/hr IV ONETIME ONE Stop: 08/30/21 21:41 Last Admin: 08/30/21 20:20 Dose: 25 mls/hr Documented by: Remdesivir 200 mg/ Sodium (Chloride) 250 mls @ 250 mls/hr IV ONETIME ONE Stop: 08/30/21 21:00 Last Infusion: 08/30/21 21:57 Dose: Infused Documented by: Lactated Ringer's (Ringers, Lactated) 1,000 mls @ 100 mls/hr IV ASDIRECTED [facility] Last Admin: 08/30/21 22:00 Dose: 100 mls/hr Documented by: Diltiazem HCl 125 mg/ Sodium (Chloride) 125 mls @ 5 mls/hr IV TITRATE [facility]; Protocol Last Admin: 08/30/21 23:18 Dose: 5 mg/hr, 5 mls/hr Documented by: Lactated Ringer's (Ringers, Lactated) 500 mls @ 999 mls/hr IV .BOLUS ONE Stop: 08/31/21 00:15 Last Infusion: 08/31/21 00:37 Dose: Infused Documented by: Lisinopril (Lisinopril 20 Mg Tab) 40 mg PO DAILY [facility] Metoprolol Tartrate (Metoprolol Tartrate 25 Mg Tab) 25 mg PO Q12H [facility] Last Admin: 08/30/21 19:35 Dose: 25 mg Documented by: Metoprolol Tartrate (Metoprolol Tartrate 5 Mg/5 Ml Sdv) 5 mg IVPUSH ONETIME ONE Stop: 08/30/21 19:44 Last Admin: 08/30/21 20:03 Dose: 5 mg Documented by: Metoprolol Tartrate (Metoprolol Tartrate 5 Mg/5 Ml Sdv) 5 mg IVPUSH ONETIME ONE Stop: 08/30/21 21:48 Last Admin: 08/30/21 22:09 Dose: 5 mg Documented by: Ondansetron HCl (Ondansetron 4 Mg/2 Ml Sdv) 4 mg IV ONETIME ONE Stop: 08/30/21 10:50 Last Admin: 08/30/21 11:33 Dose: 4 mg Documented by: Potassium Chloride (Potassium Chloride 10 Meq Tab.Er) 40 meq PO ONETIME ONE Stop: 08/30/21 19:44 Last Admin: 08/30/21 20:21 Dose: 40 meq Documented by: - Exam Quality Assessment: Supplemental Oxygen General: Alert, Oriented HEENT: Pupils Equal Neck: Supple Lungs: Decreased Breath Sounds, Other (Crackles noted bilateral lung schmidt upper and lower, mild respiratory distress) Cardiovascular: Irregular Rhythm, Tachycardia GI/Abdominal Exam: Normal Bowel Sounds, Soft Back Exam: Normal Inspection Peripheral Pulses: 2+: Radial (L), Radial (R) Skin: Warm, Dry Neurological: No New Focal Deficit Psy/Mental Status: Alert - Patient Data Lab Results Last 24 hrs: Laboratory Results - last 24 hr 08/30/21 08/30/21 08/30/21 Range/Units 10:40 11:00 11:00 WBC 2.8 L (5.0-10.0) 10^3/uL RBC 4.61 (4.2-5.4) 10^6/uL Hgb 13.7 (12.0-16.0) g/dL Hct 40.4 (37.0-47.0) % MCV 87.6 D (80-100) fL MCH 29.7 (27.0-34.0) pg MCHC 33.9 (33.0-35.0) g/dL Plt Count 135 L D (150-450) 10^3/uL Neut % (Auto) 76.4 H (42.2-75.2) % Lymph % (Auto) 16.7 L (20.5-50.1) % [place] % (Auto) 6.9 (2-8) % Eos % (Auto) 0.0 L (1.0-3.0) % Baso % (Auto) 0.0 (0.0-1.0) % PT (9.0-12.0) SEC INR (0.9-1.2) APTT (22.0-34.0) SEC D-Dimer, Quantitative 521 H (0-400) ng/mL Sodium (136-145) mmol/L Potassium (3.5-5.1) mmol/L Chloride (98-107) mmol/L Carbon Dioxide (21-32) mmol/L Anion Gap (7-13) mEq/L BUN (7-18) mg/dL Creatinine (0.55-1.02) mg/dL Est Cr Clr Drug Dosing mL/min Estimated GFR (MDRD) BUN/Creatinine Ratio (No establ ref range) Glucose (70-99) mg/dL Lactic Acid (0.4-2.0) mmol/L Calcium (8.5-10.1) mg/dL Magnesium (1.8-2.4) mg/dL Ferritin (8-252) mg/mL Total Bilirubin (0.2-1.0) mg/dL AST (15-37) U/L ALT (14-59) U/L Alkaline Phosphatase (46-116) U/L Troponin I High Sens (<=51) pg/mL C-Reactive Protein (0.0-0.9) mg/dL Total Protein (6.4-8.2) g/dL Albumin (3.4-5.0) g/dL Globulin Albumin/Globulin Ratio Influenza Type A RNA Negative (NEGATIVE) Influenza Type B RNA Negative (NEGATIVE) SARS-CoV-2 RNA (BILLY) Positive H (NEGATIVE) 08/30/21 08/30/21 08/30/21 Range/Units 11:00 11:00 11:00 WBC (5.0-10.0) 10^3/uL RBC (4.2-5.4) 10^6/uL Hgb (12.0-16.0) g/dL Hct (37.0-47.0) % MCV (80-100) fL MCH (27.0-34.0) pg MCHC (33.0-35.0) g/dL Plt Count (150-450) 10^3/uL Neut % (Auto) (42.2-75.2) % Lymph % (Auto) (20.5-50.1) % [place] % (Auto) (2-8) % Eos % (Auto) (1.0-3.0) % Baso % (Auto) (0.0-1.0) % PT 13.9 H (9.0-12.0) SEC INR 1.4 H (0.9-1.2) APTT 39.7 H (22.0-34.0) SEC D-Dimer, Quantitative (0-400) ng/mL Sodium 127 L (136-145) mmol/L Potassium 3.4 L (3.5-5.1) mmol/L Chloride 92 L (98-107) mmol/L Carbon Dioxide 26 (21-32) mmol/L Anion Gap 12.4 (7-13) mEq/L BUN 16 (7-18) mg/dL Creatinine 1.06 H (0.55-1.02) mg/dL Est Cr Clr Drug Dosing 57.46 mL/min Estimated GFR (MDRD) 54 BUN/Creatinine Ratio 15.1 (No establ ref range) Glucose 108 H (70-99) mg/dL Lactic Acid 0.8 (0.4-2.0) mmol/L Calcium 8.1 L (8.5-10.1) mg/dL Magnesium (1.8-2.4) mg/dL Ferritin (8-252) mg/mL Total Bilirubin 0.3 (0.2-1.0) mg/dL AST 43 H (15-37) U/L ALT 45 (14-59) U/L Alkaline Phosphatase 55 (46-116) U/L Troponin I High Sens 43 (<=51) pg/mL C-Reactive Protein 4.3 H (0.0-0.9) mg/dL Total Protein 7.1 (6.4-8.2) g/dL Albumin 2.9 L (3.4-5.0) g/dL Globulin 4.2 Albumin/Globulin Ratio 0.69 Influenza Type A RNA (NEGATIVE) Influenza Type B RNA (NEGATIVE) SARS-CoV-2 RNA (BILLY) (NEGATIVE) 08/30/21 08/30/21 08/30/21 Range/Units 11:00 11:00 18:47 WBC (5.0-10.0) 10^3/uL RBC (4.2-5.4) 10^6/uL Hgb (12.0-16.0) g/dL Hct (37.0-47.0) % MCV (80-100) fL MCH (27.0-34.0) pg MCHC (33.0-35.0) g/dL Plt Count (150-450) 10^3/uL Neut % (Auto) (42.2-75.2) % Lymph % (Auto) (20.5-50.1) % [place] % (Auto) (2-8) % Eos % (Auto) (1.0-3.0) % Baso % (Auto) (0.0-1.0) % PT (9.0-12.0) SEC INR (0.9-1.2) APTT (22.0-34.0) SEC D-Dimer, Quantitative (0-400) ng/mL Sodium 128 L (136-145) mmol/L Potassium 3.3 L (3.5-5.1) mmol/L Chloride 93 L (98-107) mmol/L Carbon Dioxide 26 (21-32) mmol/L Anion Gap 12.3 (7-13) mEq/L BUN (7-18) mg/dL Creatinine (0.55-1.02) mg/dL Est Cr Clr Drug Dosing mL/min Estimated GFR (MDRD) BUN/Creatinine Ratio (No establ ref range) Glucose (70-99) mg/dL Lactic Acid (0.4-2.0) mmol/L Calcium (8.5-10.1) mg/dL Magnesium 1.9 (1.8-2.4) mg/dL Ferritin 942 H (8-252) mg/mL Total Bilirubin (0.2-1.0) mg/dL AST (15-37) U/L ALT (14-59) U/L Alkaline Phosphatase (46-116) U/L Troponin I High Sens (<=51) pg/mL C-Reactive Protein (0.0-0.9) mg/dL Total Protein (6.4-8.2) g/dL Albumin (3.4-5.0) g/dL Globulin Albumin/Globulin Ratio Influenza Type A RNA (NEGATIVE) Influenza Type B RNA (NEGATIVE) SARS-CoV-2 RNA (BILLY) (NEGATIVE) 08/30/21 Range/Units 18:47 WBC (5.0-10.0) 10^3/uL RBC (4.2-5.4) 10^6/uL Hgb (12.0-16.0) g/dL Hct (37.0-47.0) % MCV (80-100) fL MCH (27.0-34.0) pg MCHC (33.0-35.0) g/dL Plt Count (150-450) 10^3/uL Neut % (Auto) (42.2-75.2) % Lymph % (Auto) (20.5-50.1) % [place] % (Auto) (2-8) % Eos % (Auto) (1.0-3.0) % Baso % (Auto) (0.0-1.0) % PT (9.0-12.0) SEC INR (0.9-1.2) APTT (22.0-34.0) SEC D-Dimer, Quantitative (0-400) ng/mL Sodium (136-145) mmol/L Potassium (3.5-5.1) mmol/L Chloride (98-107) mmol/L Carbon Dioxide (21-32) mmol/L Anion Gap (7-13) mEq/L BUN (7-18) mg/dL Creatinine (0.55-1.02) mg/dL Est Cr Clr Drug Dosing mL/min Estimated GFR (MDRD) BUN/Creatinine Ratio (No establ ref range) Glucose (70-99) mg/dL Lactic Acid (0.4-2.0) mmol/L Calcium (8.5-10.1) mg/dL Magnesium 1.8 (1.8-2.4) mg/dL Ferritin (8-252) mg/mL Total Bilirubin (0.2-1.0) mg/dL AST (15-37) U/L ALT (14-59) U/L Alkaline Phosphatase (46-116) U/L Troponin I High Sens (<=51) pg/mL C-Reactive Protein (0.0-0.9) mg/dL Total Protein (6.4-8.2) g/dL Albumin (3.4-5.0) g/dL Globulin Albumin/Globulin Ratio Influenza Type A RNA (NEGATIVE) Influenza Type B RNA (NEGATIVE) SARS-CoV-2 RNA (BILLY) (NEGATIVE) Result Diagrams: 08/31/21 07:58 08/31/21 06:30 Sepsis Event Note - Evaluation Sepsis Screening Result: Sepsis Risk - Focused Exam Vital Signs: Vital Signs Temp Temp Pulse Pulse Resp BP BP 08/31/21 03:00 98.6 F 107 H 22 H 94/50 L 08/30/21 23:47 98.8 F 08/30/21 23:17 102.1 F H 08/30/21 23:15 140 H 107/73 08/30/21 23:00 102.1 F H 140 H 25 H 62/51 L 08/30/21 22:09 130 H 145/65 H 08/30/21 20:13 101.1 F H 08/30/21 20:03 134 H 115/68 08/30/21 19:47 103.1 F H 134 H 18 115/68 08/30/21 19:43 103.1 F H 08/30/21 19:35 68 115/68 Pulse Ox 08/31/21 03:00 94 L 08/30/21 23:47 08/30/21 23:17 08/30/21 23:15 08/30/21 23:00 90 L 08/30/21 22:09 08/30/21 20:13 08/30/21 20:03 08/30/21 19:47 88 L 08/30/21 19:43 08/30/21 19:35 - Problem List & Annotations (1) Acute respiratory failure with hypoxia SNOMED Code(s): 67942822, 291832875 Code(s): J96.01 - ACUTE RESPIRATORY FAILURE WITH HYPOXIA Status: Acute Current Visit: Yes (2) Pneumonia due to COVID-19 virus SNOMED Code(s): 228763098797998890 Code(s): U07.1 - COVID-19; J12.82 - PNEUMONIA DUE TO CORONAVIRUS DISEASE 2019 Status: Acute Current Visit: Yes (3) Atrial fibrillation SNOMED Code(s): 73835319 Code(s): I48.91 - UNSPECIFIED ATRIAL FIBRILLATION Status: Acute Current Visit: Yes (4) Atrial fibrillation with RVR SNOMED Code(s): 483175759564525 Code(s): I48.91 - UNSPECIFIED ATRIAL FIBRILLATION Status: Acute Current Visit: Yes - Problem List Review Problem List Initiated/Reviewed/Updated: Yes - My Orders Last 24 Hours: My Active Orders 08/30/21 20:01 Isolation [COMM] Stat 08/30/21 20:02 Nurse Communication: Isolation [RC] ASDIRECTED 08/30/21 20:15 dexAMETHasone 6 mg PO DAILY 08/30/21 21:45 Lactated Ringers [Ringers, Lactated] 1,000 ml IV ASDIRECTED 08/30/21 22:38 Metoprolol Tartrate [Lopressor] 50 mg PO Q12H 08/31/21 09:00 Remdesivir 100 mg Sodium Chloride 0.9% [Normal Saline AdvBag] 100 ml IV Q24H - Plan Plan:: # ACUTE CONDITIONS: Acute COVID 19 viral pneumonia Acute hypoxic respiratory failure 2/2 to above Acute gastroenteritis secondary to above Hypovolemic hyponatremia 2/2 above - Currently requiring oxygen via nasal cannula - full code - Continue remdesivir per protocol, dexamethasone per protocol, lab monitoring per protocol - Blood cultures negative - imodium PRN for diarrhea - improved - d/c fluids - encourage oral intake - replace K - IS while awake - continue warfarin Rx to dose with INR goal 2-3 given hx of DVT/PE and current COVID 19 # Hypokalemia 2/2 above -K 4.6 today - diarrhea significantly improved # Atrial fibrillation with rvr -new onset - likely secondary to above and obesity/likely ALYSSA -discussed possibility of PE but patient already on warfarin and now hemodynamically stable - CTA unlikely to change current management -metoprolol 25 mg PO BID - off diltiazem drip -recommend TTE as outpatient CHRONIC CONDITIONS: - morbid obesity: BMI 45.7 on admit - chronic asthma: continue home inhalers - Essential HTN: continue lisinopril 40mg once daily - Chronic pain, diffuse: continue acetaminophen at home dose - hx of DVT/PE: warfarin Rx to dose with goal INR 2-3 - GERD without esophagitis: continue home med Code status: Full Code DVT prophylaxis: warfarin Rx to dose Further care for acute hypoxic respiratory failure
[2021-08-31 07:27] LABS: ANION GAP 13.6 mEq/L (7-13); CHLORIDE,CL 97 mmol/L (98-107); SODIUM,NA 129 mmol/L (136-145)
[2021-08-31] MEDS: Famotidine 20 MG Tab PO SCH (08:00)
[2021-08-31] MEDS: Acetaminophen 325 MG Tab PO PRN (08:01)
[2021-08-31] MEDS: Dexamethasone 6 MG TABLET PO SCH (08:01)
[2021-08-31] MEDS: Formoterol/Mometasone 200-5 MCG 8.8 GM Inhaler IH SCH ×2 (08:03→21:24)
[2021-08-31] MEDS ORDERED: Lisinopril 20 MG Tab PO SCH (09:00)
[2021-08-31] MEDS: REMDESIVIR 100 MG in Sodium Chloride 0.9% 100 ML IV SCH (09:13)
[2021-08-31] MEDS: Metoprolol Tartrate 25 MG Tab PO SCH ×2 (10:11→21:37)
[2021-08-31] MEDS ORDERED: Warfarin 2 MG Tab PO ONE (14:00)
[2021-09-01] MEDS: Acetaminophen 325 MG Tab PO PRN (00:50)
--- NOTE | 2021-09-01 07:00 | PCM.PN ---
- General Info Date of Service: 09/01/21 Admission Dx/Problem (Free Text): Admission Diagnosis/Problem Admission Diagnosis/Problem Gastroenteritis Subjective Update: Patient required increasing oxygen overnight to 6 L via nasal cannula. This a.m. patient states that she feels her breathing is about the same and actually may be slightly improved from prior night. States he is having more nausea and side some lightheadedness with standing today. Patient denies any further diarrhea. Remainder of review of systems was negative except those listed above. - Patient Data Vitals - Most Recent: Last Vital Signs Temp 98 F 09/01/21 04:00 Pulse 80 09/01/21 04:00 Resp 20 09/01/21 04:00 BP 103/66 09/01/21 04:00 Pulse Ox 95 09/01/21 04:00 Weight - Most Recent: 311 lb 11.2 oz I&O - Last 24 Hours: Intake & Output 08/31/21 08/31/21 09/01/21 14:59 22:59 06:59 Intake Total 820 660 300 Balance 820 660 300 Lab Results Last 24 Hours: Laboratory Results - last 24 hr 08/31/21 08/31/21 08/31/21 Range/Units 06:30 07:58 07:58 WBC 2.3 L (5.0-10.0) 10^3/uL RBC 4.87 (4.2-5.4) 10^6/uL Hgb 14.4 (12.0-16.0) g/dL Hct 42.5 (37.0-47.0) % MCV 87.3 (80-100) fL MCH 29.6 (27.0-34.0) pg MCHC 33.9 (33.0-35.0) g/dL Plt Count 130 L (150-450) 10^3/uL PT 15.8 H (9.0-12.0) SEC INR 1.6 H (0.9-1.2) Sodium 129 L (136-145) mmol/L Potassium 4.6 (3.5-5.1) mmol/L Chloride 97 L (98-107) mmol/L Carbon Dioxide 23 (21-32) mmol/L Anion Gap 13.6 H (7-13) mEq/L BUN 13 (7-18) mg/dL Creatinine 0.95 (0.55-1.02) mg/dL Est Cr Clr Drug Dosing 69.08 mL/min Estimated GFR (MDRD) > 60 BUN/Creatinine Ratio 13.7 (No establ ref range) Glucose 118 H (70-99) mg/dL Calcium 8.0 L (8.5-10.1) mg/dL Total Bilirubin 0.2 (0.2-1.0) mg/dL AST 52 H (15-37) U/L ALT 39 (14-59) U/L Alkaline Phosphatase 47 (46-116) U/L Total Protein 6.6 (6.4-8.2) g/dL Albumin 2.4 L (3.4-5.0) g/dL Globulin 4.2 Albumin/Globulin Ratio 0.57 Urine Color (YELLOW) Urine Appearance (CLEAR) Urine pH (5.0-9.0) Ur Specific [place] (1.005-1.030) Urine Protein (NEGATIVE) Urine Glucose (UA) (NEGATIVE) Urine Ketones (NEGATIVE) Urine Occult Blood (NEGATIVE) Urine Nitrite (NEGATIVE) Urine Bilirubin (NEGATIVE) Urine Urobilinogen (0.2-1.0) mg/dL Ur Leukocyte Esterase (NEGATIVE) Urine RBC (0-5) /HPF Urine WBC (0-5/HPF) /HPF Ur Epithelial Cells (NOT SEEN) /HPF Amorphous Sediment (NOT SEEN) /HPF Urine Bacteria (0-FEW/HPF) /HPF 09/01/21 Range/Units 00:10 WBC (5.0-10.0) 10^3/uL RBC (4.2-5.4) 10^6/uL Hgb (12.0-16.0) g/dL Hct (37.0-47.0) % MCV (80-100) fL MCH (27.0-34.0) pg MCHC (33.0-35.0) g/dL Plt Count (150-450) 10^3/uL PT (9.0-12.0) SEC INR (0.9-1.2) Sodium (136-145) mmol/L Potassium (3.5-5.1) mmol/L Chloride (98-107) mmol/L Carbon Dioxide (21-32) mmol/L Anion Gap (7-13) mEq/L BUN (7-18) mg/dL Creatinine (0.55-1.02) mg/dL Est Cr Clr Drug Dosing mL/min Estimated GFR (MDRD) BUN/Creatinine Ratio (No establ ref range) Glucose (70-99) mg/dL Calcium (8.5-10.1) mg/dL Total Bilirubin (0.2-1.0) mg/dL AST (15-37) U/L ALT (14-59) U/L Alkaline Phosphatase (46-116) U/L Total Protein (6.4-8.2) g/dL Albumin (3.4-5.0) g/dL Globulin Albumin/Globulin Ratio Urine Color Yellow (YELLOW) Urine Appearance Clear (CLEAR) Urine pH 6.5 (5.0-9.0) Ur Specific [place] 1.020 (1.005-1.030) Urine Protein 30 H (NEGATIVE) Urine Glucose (UA) Negative (NEGATIVE) Urine Ketones Negative (NEGATIVE) Urine Occult Blood Trace-intact H (NEGATIVE) Urine Nitrite Negative (NEGATIVE) Urine Bilirubin Negative (NEGATIVE) Urine Urobilinogen 0.2 (0.2-1.0) mg/dL Ur Leukocyte Esterase Small H (NEGATIVE) Urine RBC 0-5 (0-5) /HPF Urine WBC 10-20 H (0-5/HPF) /HPF Ur Epithelial Cells Moderate H (NOT SEEN) /HPF Amorphous Sediment Few (NOT SEEN) /HPF Urine Bacteria Moderate H (0-FEW/HPF) /HPF Ramiro Results Last 24 Hours: Microbiology 08/30/21 10:55 Aerobic Blood Culture - Preliminary Blood - Arm, Left NO GROWTH AFTER 1 DAY Anaerobic Blood Culture - Preliminary NO GROWTH AFTER 1 DAY 08/30/21 11:00 Aerobic Blood Culture - Preliminary Blood - Arm, Right NO GROWTH AFTER 1 DAY Anaerobic Blood Culture - Preliminary NO GROWTH AFTER 1 DAY Med Orders - Current: Current Medications Acetaminophen (Acetaminophen 325 Mg Tab) 650 mg PO Q4H PRN PRN Reason: Fever Last Admin: 09/01/21 00:50 Dose: 650 mg Documented by: Albuterol (Albuterol 6.7 Gm Inhaler) 0 gm INH Q4HR PRN PRN Reason: Shortness of Breath Dexamethasone (Dexamethasone 6 Mg Tablet) 6 mg PO DAILY [facility] Stop: 09/08/21 09:01 Last Admin: 08/31/21 08:01 Dose: 6 mg Documented by: Famotidine (Famotidine 20 Mg Tab) 20 mg PO DAILY [facility] Last Admin: 08/31/21 08:00 Dose: 20 mg Documented by: Remdesivir 100 mg/ Sodium (Chloride) 100 mls @ 100 mls/hr IV Q24H [facility] Stop: 09/03/21 09:59 Last Admin: 08/31/21 09:13 Dose: 100 mls/hr Documented by: Loperamide HCl (Loperamide 2 Mg Cap) 2 mg PO ASDIRECTED PRN PRN Reason: Diarrhea Metoprolol Tartrate (Metoprolol Tartrate 25 Mg Tab) 50 mg PO Q12H [facility] Last Admin: 08/31/21 21:37 Dose: 50 mg Documented by: Mometasone Furoate/Formoterol Fumar (Formoterol/Mometasone 200-5 Mcg 8.8 Gm Inhaler) 2 puff IH BID [facility] Last Admin: 08/31/21 21:24 Dose: 2 puff Documented by: Polyethylene Glycol (Polyethylene Glycol 3350 Powder 17 Gm Packet) 17 gm PO DAILY PRN PRN Reason: Constipation Sodium Chloride (Sodium Chloride 0.9% 10 Ml Syringe) 10 ml FLUSH ASDIRECTED PRN PRN Reason: Keep Vein Open Last Admin: 08/30/21 13:39 Dose: 10 ml Documented by: Warfarin Sodium (Pharmacy To Dose - Warfarin) 0 dose .XX ASDIRECTED [facility] Discontinued Medications Acetaminophen (Acetaminophen 325 Mg Tab) 975 mg PO NOW ONE Stop: 08/30/21 10:50 Last Admin: 08/30/21 11:44 Dose: Not Given Documented by: Acetaminophen (Acetaminophen 500 Mg Tab) 1,000 mg PO ONETIME ONE Stop: 08/30/21 13:40 Last Admin: 08/30/21 13:47 Dose: 1,000 mg Documented by: Diltiazem HCl (Diltiazem 25 Mg/5 Ml Sdv) 20 mg IVPUSH ONETIME ONE Stop: 08/30/21 22:40 Last Admin: 08/30/21 23:18 Dose: 20 mg Documented by: Sodium Chloride (Normal Saline) 1,000 mls @ 999 mls/hr IV .BOLUS ONE Stop: 08/30/21 12:25 Last Admin: 08/30/21 11:33 Dose: 999 mls/hr Documented by: Lactated Ringer's (Ringers, Lactated) 1,000 mls @ 125 mls/hr IV ASDIRECTED [facility] Stop: 08/30/21 21:14 Last Infusion: 08/30/21 21:58 Dose: Infused Documented by: Magnesium Sulfate 2 gm/ Premix 50 mls @ 25 mls/hr IV ONETIME ONE Stop: 08/30/21 21:41 Last Admin: 08/30/21 20:20 Dose: 25 mls/hr Documented by: Remdesivir 200 mg/ Sodium (Chloride) 250 mls @ 250 mls/hr IV ONETIME ONE Stop: 08/30/21 21:00 Last Infusion: 08/30/21 21:57 Dose: Infused Documented by: Lactated Ringer's (Ringers, Lactated) 1,000 mls @ 75 mls/hr IV ASDIRECTED [facility] Last Admin: 08/31/21 00:41 Dose: 75 mls/hr Documented by: Lactated Ringer's (Ringers, Lactated) 1,000 mls @ 100 mls/hr IV ASDIRECTED [facility] Last Admin: 08/30/21 22:00 Dose: 100 mls/hr Documented by: Diltiazem HCl 125 mg/ Sodium (Chloride) 125 mls @ 5 mls/hr IV TITRATE [facility]; Protocol Last Admin: 08/30/21 23:18 Dose: 5 mg/hr, 5 mls/hr Documented by: Lactated Ringer's (Ringers, Lactated) 500 mls @ 999 mls/hr IV .BOLUS ONE Stop: 08/31/21 00:15 Last Infusion: 08/31/21 00:37 Dose: Infused Documented by: Lisinopril (Lisinopril 20 Mg Tab) 40 mg PO DAILY [facility] Metoprolol Tartrate (Metoprolol Tartrate 25 Mg Tab) 25 mg PO Q12H [facility] Last Admin: 08/30/21 19:35 Dose: 25 mg Documented by: Metoprolol Tartrate (Metoprolol Tartrate 5 Mg/5 Ml Sdv) 5 mg IVPUSH ONETIME ONE Stop: 08/30/21 19:44 Last Admin: 08/30/21 20:03 Dose: 5 mg Documented by: Metoprolol Tartrate (Metoprolol Tartrate 5 Mg/5 Ml Sdv) 5 mg IVPUSH ONETIME ONE Stop: 08/30/21 21:48 Last Admin: 08/30/21 22:09 Dose: 5 mg Documented by: Ondansetron HCl (Ondansetron 4 Mg/2 Ml Sdv) 4 mg IV ONETIME ONE Stop: 08/30/21 10:50 Last Admin: 08/30/21 11:33 Dose: 4 mg Documented by: Potassium Chloride (Potassium Chloride 10 Meq Tab.Er) 40 meq PO ONETIME ONE Stop: 08/30/21 19:44 Last Admin: 08/30/21 20:21 Dose: 40 meq Documented by: Warfarin Sodium (Warfarin 2 Mg Tab) 8 mg PO ONETIME ONE Stop: 08/31/21 14:01 Last Admin: 08/31/21 17:13 Dose: 8 mg Documented by: - Exam Quality Assessment: Supplemental Oxygen General: Alert, Oriented HEENT: Pupils Equal Neck: Supple Lungs: Decreased Breath Sounds, Wheezing Cardiovascular: Regular Rate, Regular Rhythm GI/Abdominal Exam: Normal Bowel Sounds, Soft, No Distention Back Exam: Normal Inspection Extremities: Normal Inspection Peripheral Pulses: 2+: Radial (L), Radial (R) Skin: Warm, Dry Neurological: No New Focal Deficit Psy/Mental Status: Alert - Patient Data Lab Results Last 24 hrs: Laboratory Results - last 24 hr 08/31/21 08/31/21 08/31/21 Range/Units 06:30 07:58 07:58 WBC 2.3 L (5.0-10.0) 10^3/uL RBC 4.87 (4.2-5.4) 10^6/uL Hgb 14.4 (12.0-16.0) g/dL Hct 42.5 (37.0-47.0) % MCV 87.3 (80-100) fL MCH 29.6 (27.0-34.0) pg MCHC 33.9 (33.0-35.0) g/dL Plt Count 130 L (150-450) 10^3/uL PT 15.8 H (9.0-12.0) SEC INR 1.6 H (0.9-1.2) Sodium 129 L (136-145) mmol/L Potassium 4.6 (3.5-5.1) mmol/L Chloride 97 L (98-107) mmol/L Carbon Dioxide 23 (21-32) mmol/L Anion Gap 13.6 H (7-13) mEq/L BUN 13 (7-18) mg/dL Creatinine 0.95 (0.55-1.02) mg/dL Est Cr Clr Drug Dosing 69.08 mL/min Estimated GFR (MDRD) > 60 BUN/Creatinine Ratio 13.7 (No establ ref range) Glucose 118 H (70-99) mg/dL Calcium 8.0 L (8.5-10.1) mg/dL Total Bilirubin 0.2 (0.2-1.0) mg/dL AST 52 H (15-37) U/L ALT 39 (14-59) U/L Alkaline Phosphatase 47 (46-116) U/L Total Protein 6.6 (6.4-8.2) g/dL Albumin 2.4 L (3.4-5.0) g/dL Globulin 4.2 Albumin/Globulin Ratio 0.57 Urine Color (YELLOW) Urine Appearance (CLEAR) Urine pH (5.0-9.0) Ur Specific [place] (1.005-1.030) Urine Protein (NEGATIVE) Urine Glucose (UA) (NEGATIVE) Urine Ketones (NEGATIVE) Urine Occult Blood (NEGATIVE) Urine Nitrite (NEGATIVE) Urine Bilirubin (NEGATIVE) Urine Urobilinogen (0.2-1.0) mg/dL Ur Leukocyte Esterase (NEGATIVE) Urine RBC (0-5) /HPF Urine WBC (0-5/HPF) /HPF Ur Epithelial Cells (NOT SEEN) /HPF Amorphous Sediment (NOT SEEN) /HPF Urine Bacteria (0-FEW/HPF) /HPF 09/01/21 Range/Units 00:10 WBC (5.0-10.0) 10^3/uL RBC (4.2-5.4) 10^6/uL Hgb (12.0-16.0) g/dL Hct (37.0-47.0) % MCV (80-100) fL MCH (27.0-34.0) pg MCHC (33.0-35.0) g/dL Plt Count (150-450) 10^3/uL PT (9.0-12.0) SEC INR (0.9-1.2) Sodium (136-145) mmol/L Potassium (3.5-5.1) mmol/L Chloride (98-107) mmol/L Carbon Dioxide (21-32) mmol/L Anion Gap (7-13) mEq/L BUN (7-18) mg/dL Creatinine (0.55-1.02) mg/dL Est Cr Clr Drug Dosing mL/min Estimated GFR (MDRD) BUN/Creatinine Ratio (No establ ref range) Glucose (70-99) mg/dL Calcium (8.5-10.1) mg/dL Total Bilirubin (0.2-1.0) mg/dL AST (15-37) U/L ALT (14-59) U/L Alkaline Phosphatase (46-116) U/L Total Protein (6.4-8.2) g/dL Albumin (3.4-5.0) g/dL Globulin Albumin/Globulin Ratio Urine Color Yellow (YELLOW) Urine Appearance Clear (CLEAR) Urine pH 6.5 (5.0-9.0) Ur Specific [place] 1.020 (1.005-1.030) Urine Protein 30 H (NEGATIVE) Urine Glucose (UA) Negative (NEGATIVE) Urine Ketones Negative (NEGATIVE) Urine Occult Blood Trace-intact H (NEGATIVE) Urine Nitrite Negative (NEGATIVE) Urine Bilirubin Negative (NEGATIVE) Urine Urobilinogen 0.2 (0.2-1.0) mg/dL Ur Leukocyte Esterase Small H (NEGATIVE) Urine RBC 0-5 (0-5) /HPF Urine WBC 10-20 H (0-5/HPF) /HPF Ur Epithelial Cells Moderate H (NOT SEEN) /HPF Amorphous Sediment Few (NOT SEEN) /HPF Urine Bacteria Moderate H (0-FEW/HPF) /HPF Result Diagrams: 08/31/21 07:58 09/01/21 06:29 Ramiro Results Last 24 hrs: Microbiology 08/30/21 10:55 Aerobic Blood Culture - Preliminary Blood - Arm, Left NO GROWTH AFTER 1 DAY Anaerobic Blood Culture - Preliminary NO GROWTH AFTER 1 DAY 08/30/21 11:00 Aerobic Blood Culture - Preliminary Blood - Arm, Right NO GROWTH AFTER 1 DAY Anaerobic Blood Culture - Preliminary NO GROWTH AFTER 1 DAY Sepsis Event Note - Evaluation Sepsis Screening Result: No Definite Risk - Focused Exam Vital Signs: Vital Signs Temp Temp Pulse Pulse Resp BP BP 09/01/21 04:00 98 F 80 20 103/66 09/01/21 01:20 97 F 09/01/21 00:50 99.8 F 09/01/21 00:00 99.2 F 80 20 113/78 08/31/21 21:37 89 116/78 08/31/21 20:00 98.8 F 89 29 H BP Pulse Ox 09/01/21 04:00 95 09/01/21 01:20 09/01/21 00:50 09/01/21 00:00 92 L 08/31/21 21:37 08/31/21 20:00 116/78 94 L - Problem List & Annotations (1) Acute respiratory failure with hypoxia SNOMED Code(s): 67461029, 679071926 Code(s): J96.01 - ACUTE RESPIRATORY FAILURE WITH HYPOXIA Status: Acute Current Visit: Yes (2) Pneumonia due to COVID-19 virus SNOMED Code(s): 470465616922323631 Code(s): U07.1 - COVID-19; J12.82 - PNEUMONIA DUE TO CORONAVIRUS DISEASE 2018 Status: Acute Current Visit: Yes (3) Atrial fibrillation SNOMED Code(s): 80609496 Code(s): I48.91 - UNSPECIFIED ATRIAL FIBRILLATION Status: Acute Current Visit: Yes (4) Atrial fibrillation with RVR SNOMED Code(s): 590123653815616 Code(s): I48.91 - UNSPECIFIED ATRIAL FIBRILLATION Status: Acute Current Visit: Yes - Problem List Review Problem List Initiated/Reviewed/Updated: Yes - My Orders Last 24 Hours: My Active Orders 08/31/21 09:00 Remdesivir 100 mg Sodium Chloride 0.9% [Normal Saline AdvBag] 100 ml IV Q24H 09/01/21 06:29 BASIC METABOLIC PANEL,BMP [CHEM] AM - Plan Plan:: # ACUTE CONDITIONS: Acute COVID 19 viral pneumonia Acute hypoxic respiratory failure 2/2 to above Acute gastroenteritis secondary to above Hypovolemic hyponatremia 2/2 above - Currently requiring oxygen via nasal cannula -maintains full CODE STATUS - Start date 08/31/21 -remdesivir per protocol, dexamethasone per protocol, lab monitoring per protocol - Blood cultures negative - imodium PRN for diarrhea - improved - IS while awake - continue warfarin Rx to dose with INR goal 2-3 given hx of DVT/PE and current COVID 19 # Hypokalemia 2/2 above -Resolved, diarrhea significantly improved # Atrial fibrillation with rvr -new onset - likely secondary to above and obesity/likely ALYSSA -discussed possibility of PE but patient already on warfarin and now hemodynamically stable - CTA unlikely to change current management -metoprolol 25 mg PO BID - off diltiazem drip - rates better controled -recommend TTE as outpatient CHRONIC CONDITIONS: - morbid obesity: BMI 45.7 on admit - chronic asthma: continue home inhalers - Essential HTN: hold lisinopril 40mg once daily given some hypotension - Chronic pain, diffuse: continue acetaminophen at home dose - hx of DVT/PE: warfarin Rx to dose with goal INR 2-3 - GERD without esophagitis: continue home med Code status: Full Code DVT prophylaxis: warfarin Rx to dose Further care for acute hypoxic respiratory failure
[2021-09-01 07:07] LABS: ANION GAP 12.2 mEq/L (7-13); CHLORIDE,CL 99 mmol/L (98-107); SODIUM,NA 133 mmol/L (136-145)
[2021-09-01] MEDS: Famotidine 20 MG Tab PO SCH (08:54)
[2021-09-01] MEDS: Dexamethasone 6 MG TABLET PO SCH (08:55)
[2021-09-01] MEDS: Formoterol/Mometasone 200-5 MCG 8.8 GM Inhaler IH SCH ×2 (08:57→20:30)
[2021-09-01] MEDS: REMDESIVIR 100 MG in Sodium Chloride 0.9% 100 ML IV SCH (09:01)
[2021-09-01] MEDS ORDERED: Sodium Chloride 0.9% 500 ML IV SCH (09:45)
[2021-09-01] MEDS: Metoprolol Tartrate 25 MG Tab PO SCH ×2 (10:37→21:54)
[2021-09-01] MEDS: Albuterol 6.7 GM Inhaler INH PRN (11:30)
[2021-09-01] MEDS: Ondansetron 4 MG/2 ML SDV IVPUSH PRN (12:57)
[2021-09-01] MEDS ORDERED: Warfarin 5 MG Tab PO ONE (14:00)
[2021-09-02] MEDS: Ondansetron 4 MG/2 ML SDV IVPUSH PRN ×2 (00:45→09:57)
[2021-09-02] MEDS: Sodium Chloride 0.9% 10 ML Syringe FLUSH PRN (00:45)
[2021-09-02] MEDS: Acetaminophen 325 MG Tab PO PRN (01:01)
--- NOTE | 2021-09-02 06:16 | PCM.PN ---
- General Info Date of Service: 09/02/21 Admission Dx/Problem (Free Text): Admission Diagnosis/Problem Admission Diagnosis/Problem Gastroenteritis Subjective Update: Patient is stable oxygen comes overnight currently requiring 6.5 L via nasal cannula. Patient states that her breathing is stable denies any recurrent chest pains or pressures. She does state that her nausea and lightheadedness are intermittent. Patient denies any further diarrhea. Remainder of review of systems was negative except those listed above. - Patient Data Vitals - Most Recent: Last Vital Signs Temp 99.3 F 09/02/21 00:00 Pulse 92 09/02/21 04:00 Resp 24 H 09/02/21 04:00 BP 117/88 09/02/21 00:00 Pulse Ox 93 L 09/02/21 04:00 Weight - Most Recent: 311 lb 11.2 oz I&O - Last 24 Hours: Intake & Output 09/01/21 09/01/21 09/02/21 14:59 22:59 06:59 Intake Total 720 1740 Balance 720 1740 Lab Results Last 24 Hours: Laboratory Results - last 24 hr 09/01/21 09/01/21 Range/Units 06:29 06:29 PT 17.8 H (9.0-12.0) SEC INR 1.8 H (0.9-1.2) Sodium 133 L (136-145) mmol/L Potassium 4.2 (3.5-5.1) mmol/L Chloride 99 (98-107) mmol/L Carbon Dioxide 26 (21-32) mmol/L Anion Gap 12.2 (7-13) mEq/L BUN 15 (7-18) mg/dL Creatinine 0.69 (0.55-1.02) mg/dL Est Cr Clr Drug Dosing 95.12 mL/min Estimated GFR (MDRD) > 60 Glucose 113 H (70-99) mg/dL Calcium 8.4 L (8.5-10.1) mg/dL Ramiro Results Last 24 Hours: Microbiology 08/30/21 10:55 Aerobic Blood Culture - Preliminary Blood - Arm, Left NO GROWTH AFTER 2 DAYS Anaerobic Blood Culture - Preliminary NO GROWTH AFTER 2 DAYS 08/30/21 11:00 Aerobic Blood Culture - Preliminary Blood - Arm, Right NO GROWTH AFTER 2 DAYS Anaerobic Blood Culture - Preliminary NO GROWTH AFTER 2 DAYS Med Orders - Current: Current Medications Acetaminophen (Acetaminophen 325 Mg Tab) 650 mg PO Q4H PRN PRN Reason: Fever Last Admin: 09/02/21 01:01 Dose: 650 mg Documented by: Albuterol (Albuterol 6.7 Gm Inhaler) 0 gm INH Q4HR PRN PRN Reason: Shortness of Breath Last Admin: 09/01/21 11:30 Dose: 2 puff Documented by: Dexamethasone (Dexamethasone 6 Mg Tablet) 6 mg PO DAILY REPLACED BY [facility] Stop: 09/08/21 09:01 Last Admin: 09/01/21 08:55 Dose: 6 mg Documented by: Famotidine (Famotidine 20 Mg Tab) 20 mg PO DAILY REPLACED BY [facility] Last Admin: 09/01/21 08:54 Dose: 20 mg Documented by: Remdesivir 100 mg/ Sodium (Chloride) 100 mls @ 100 mls/hr IV Q24H REPLACED BY [facility] Stop: 09/03/21 09:59 Last Admin: 09/01/21 09:01 Dose: 100 mls/hr Documented by: Sodium Chloride (Normal Saline) 500 mls @ 999 mls/hr IV .BOLUS REPLACED BY [facility] Last Admin: 09/01/21 10:25 Dose: 999 mls/hr Documented by: Loperamide HCl (Loperamide 2 Mg Cap) 2 mg PO ASDIRECTED PRN PRN Reason: Diarrhea Metoprolol Tartrate (Metoprolol Tartrate 25 Mg Tab) 50 mg PO Q12H REPLACED BY [facility] Last Admin: 09/01/21 21:54 Dose: 50 mg Documented by: Mometasone Furoate/Formoterol Fumar (Formoterol/Mometasone 200-5 Mcg 8.8 Gm Inhaler) 2 puff IH BID REPLACED BY [facility] Last Admin: 09/01/21 20:30 Dose: 2 puff Documented by: Ondansetron HCl (Ondansetron 4 Mg/2 Ml Sdv) 4 mg IVPUSH Q6H PRN PRN Reason: Nausea/Vomiting Last Admin: 09/02/21 00:45 Dose: 4 mg Documented by: Polyethylene Glycol (Polyethylene Glycol 3350 Powder 17 Gm Packet) 17 gm PO DAILY PRN PRN Reason: Constipation Sodium Chloride (Sodium Chloride 0.9% 10 Ml Syringe) 10 ml FLUSH ASDIRECTED PRN PRN Reason: Keep Vein Open Last Admin: 09/02/21 00:45 Dose: 10 ml Documented by: Warfarin Sodium (Pharmacy To Dose - Warfarin) 0 dose .XX ASDIRECTED REPLACED BY [facility] Discontinued Medications Acetaminophen (Acetaminophen 325 Mg Tab) 975 mg PO NOW ONE Stop: 08/30/21 10:50 Last Admin: 08/30/21 11:44 Dose: Not Given Documented by: Acetaminophen (Acetaminophen 500 Mg Tab) 1,000 mg PO ONETIME ONE Stop: 08/30/21 13:40 Last Admin: 08/30/21 13:47 Dose: 1,000 mg Documented by: Diltiazem HCl (Diltiazem 25 Mg/5 Ml Sdv) 20 mg IVPUSH ONETIME ONE Stop: 08/30/21 22:40 Last Admin: 08/30/21 23:18 Dose: 20 mg Documented by: Sodium Chloride (Normal Saline) 1,000 mls @ 999 mls/hr IV .BOLUS ONE Stop: 08/30/21 12:25 Last Admin: 08/30/21 11:33 Dose: 999 mls/hr Documented by: Lactated Ringer's (Ringers, Lactated) 1,000 mls @ 125 mls/hr IV ASDIRECTED [facility] Stop: 08/30/21 21:14 Last Infusion: 08/30/21 21:58 Dose: Infused Documented by: Magnesium Sulfate 2 gm/ Premix 50 mls @ 25 mls/hr IV ONETIME ONE Stop: 08/30/21 21:41 Last Admin: 08/30/21 20:20 Dose: 25 mls/hr Documented by: Remdesivir 200 mg/ Sodium (Chloride) 250 mls @ 250 mls/hr IV ONETIME ONE Stop: 08/30/21 21:00 Last Infusion: 08/30/21 21:57 Dose: Infused Documented by: Lactated Ringer's (Ringers, Lactated) 1,000 mls @ 75 mls/hr IV ASDIRECTED REPLACED BY [facility] Last Admin: 08/31/21 00:41 Dose: 75 mls/hr Documented by: Lactated Ringer's (Ringers, Lactated) 1,000 mls @ 100 mls/hr IV ASDIRECTED [facility] Last Admin: 08/30/21 22:00 Dose: 100 mls/hr Documented by: Diltiazem HCl 125 mg/ Sodium (Chloride) 125 mls @ 5 mls/hr IV TITRATE [facility]; Protocol Last Admin: 08/30/21 23:18 Dose: 5 mg/hr, 5 mls/hr Documented by: Lactated Ringer's (Ringers, Lactated) 500 mls @ 999 mls/hr IV .BOLUS ONE Stop: 08/31/21 00:15 Last Infusion: 08/31/21 00:37 Dose: Infused Documented by: Lisinopril (Lisinopril 20 Mg Tab) 40 mg PO DAILY [facility] Metoprolol Tartrate (Metoprolol Tartrate 25 Mg Tab) 25 mg PO Q12H [facility] Last Admin: 08/30/21 19:35 Dose: 25 mg Documented by: Metoprolol Tartrate (Metoprolol Tartrate 5 Mg/5 Ml Sdv) 5 mg IVPUSH ONETIME ONE Stop: 08/30/21 19:44 Last Admin: 08/30/21 20:03 Dose: 5 mg Documented by: Metoprolol Tartrate (Metoprolol Tartrate 5 Mg/5 Ml Sdv) 5 mg IVPUSH ONETIME ONE Stop: 08/30/21 21:48 Last Admin: 08/30/21 22:09 Dose: 5 mg Documented by: Ondansetron HCl (Ondansetron 4 Mg/2 Ml Sdv) 4 mg IV ONETIME ONE Stop: 08/30/21 10:50 Last Admin: 08/30/21 11:33 Dose: 4 mg Documented by: Potassium Chloride (Potassium Chloride 10 Meq Tab.Er) 40 meq PO ONETIME ONE Stop: 08/30/21 19:44 Last Admin: 08/30/21 20:21 Dose: 40 meq Documented by: Warfarin Sodium (Warfarin 2 Mg Tab) 8 mg PO ONETIME ONE Stop: 08/31/21 14:01 Last Admin: 08/31/21 17:13 Dose: 8 mg Documented by: Warfarin Sodium (Warfarin 5 Mg Tab) 5 mg PO ONETIME ONE Stop: 09/01/21 14:01 Last Admin: 09/01/21 13:00 Dose: 5 mg Documented by: - Exam Quality Assessment: Supplemental Oxygen General: Alert, Oriented HEENT: Pupils Equal Neck: Supple Lungs: Decreased Breath Sounds, Crackles, Wheezing Cardiovascular: Regular Rate, Irregular Rhythm GI/Abdominal Exam: Normal Bowel Sounds, Soft Back Exam: Normal Inspection Extremities: Normal Range of Motion Peripheral Pulses: 2+: Radial (L), Radial (R) Skin: Warm Neurological: No New Focal Deficit Psy/Mental Status: Alert - Patient Data Lab Results Last 24 hrs: Laboratory Results - last 24 hr 09/01/21 09/01/21 Range/Units 06:29 06:29 PT 17.8 H (9.0-12.0) SEC INR 1.8 H (0.9-1.2) Sodium 133 L (136-145) mmol/L Potassium 4.2 (3.5-5.1) mmol/L Chloride 99 (98-107) mmol/L Carbon Dioxide 26 (21-32) mmol/L Anion Gap 12.2 (7-13) mEq/L BUN 15 (7-18) mg/dL Creatinine 0.69 (0.55-1.02) mg/dL Est Cr Clr Drug Dosing 95.12 mL/min Estimated GFR (MDRD) > 60 Glucose 113 H (70-99) mg/dL Calcium 8.4 L (8.5-10.1) mg/dL Result Diagrams: 08/31/21 07:58 09/01/21 06:29 Ramiro Results Last 24 hrs: Microbiology 08/30/21 10:55 Aerobic Blood Culture - Preliminary Blood - Arm, Left NO GROWTH AFTER 2 DAYS Anaerobic Blood Culture - Preliminary NO GROWTH AFTER 2 DAYS 08/30/21 11:00 Aerobic Blood Culture - Preliminary Blood - Arm, Right NO GROWTH AFTER 2 DAYS Anaerobic Blood Culture - Preliminary NO GROWTH AFTER 2 DAYS Sepsis Event Note - Evaluation Sepsis Screening Result: No Definite Risk - Focused Exam Vital Signs: Vital Signs Temp Pulse Pulse Resp BP BP Pulse Ox 09/02/21 04:00 92 24 H 93 L 09/02/21 00:00 99.3 F 88 26 H 117/88 93 L 09/01/21 21:54 97 119/59 L 09/01/21 20:00 98.4 F 84 27 H 106/73 92 L - Problem List & Annotations (1) Acute respiratory failure with hypoxia SNOMED Code(s): 59757492, 906427819 Code(s): J96.01 - ACUTE RESPIRATORY FAILURE WITH HYPOXIA Status: Acute Current Visit: Yes (2) Pneumonia due to COVID-19 virus SNOMED Code(s): 202054985615555624 Code(s): U07.1 - COVID-19; J12.82 - PNEUMONIA DUE TO CORONAVIRUS DISEASE 2019 Status: Acute Current Visit: Yes (3) Atrial fibrillation SNOMED Code(s): 38116247 Code(s): I48.91 - UNSPECIFIED ATRIAL FIBRILLATION Status: Acute Current Visit: Yes (4) Atrial fibrillation with RVR SNOMED Code(s): 026410904432460 Code(s): I48.91 - UNSPECIFIED ATRIAL FIBRILLATION Status: Acute Current Visit: Yes - Problem List Review Problem List Initiated/Reviewed/Updated: Yes - My Orders Last 24 Hours: My Active Orders 09/01/21 09:45 Sodium Chloride 0.9% [Normal Saline] 500 ml IV .BOLUS 09/01/21 12:27 Ondansetron [Zofran] 4 mg IVPUSH Q6H PRN - Plan Plan:: # ACUTE CONDITIONS: Acute COVID 19 viral pneumonia Acute hypoxic respiratory failure 2/2 to above Acute gastroenteritis secondary to above Hypovolemic hyponatremia 2/2 above - Currently requiring oxygen via nasal cannula - increased need to 6.5L today - maintains full CODE STATUS - Start date 08/31/21 -remdesivir per protocol, dexamethasone per protocol, lab monitoring per protocol - Blood cultures negative - imodium PRN for diarrhea - improved - IS while awake - continue warfarin Rx to dose with INR goal 2-3 given hx of DVT/PE and current COVID 19 # Hypokalemia 2/2 above -Resolved, diarrhea significantly improved # Atrial fibrillation with rvr -new onset - likely secondary to above and obesity/likely ALYSSA -discussed possibility of PE but patient already on warfarin and now hemodynamically stable - CTA unlikely to change current management -metoprolol 50 mg PO BID - off diltiazem drip 09/01/21 - rates better controlled -recommend TTE as outpatient # CHRONIC CONDITIONS: - morbid obesity: BMI 45.7 on admit - chronic asthma: continue home inhalers - Essential HTN: hold lisinopril 40mg once daily given some hypotension - Chronic pain, diffuse: continue acetaminophen at home dose - hx of DVT/PE: warfarin Rx to dose with goal INR 2-3 - GERD without esophagitis: continue home med Code status: Full Code DVT prophylaxis: warfarin Further care for acute hypoxic respiratory failure
[2021-09-02] MEDS: Metoprolol Tartrate 25 MG Tab PO SCH ×2 (09:55→20:31)
[2021-09-02] MEDS: Famotidine 20 MG Tab PO SCH (09:55)
[2021-09-02] MEDS: Dexamethasone 6 MG TABLET PO SCH (09:56)
[2021-09-02] MEDS: REMDESIVIR 100 MG in Sodium Chloride 0.9% 100 ML IV SCH (09:57)
[2021-09-02] MEDS: Formoterol/Mometasone 200-5 MCG 8.8 GM Inhaler IH SCH ×2 (10:00→20:30)
[2021-09-03] MEDS: Ondansetron 4 MG/2 ML SDV IVPUSH PRN (05:01)
[2021-09-03 06:23] LABS: ANION GAP 13.6 mEq/L (7-13); CHLORIDE,CL 98 mmol/L (98-107); SODIUM,NA 136 mmol/L (136-145)
--- NOTE | 2021-09-03 06:57 | PCM.PN ---
- General Info Date of Service: 09/03/21 Admission Dx/Problem (Free Text): Admission Diagnosis/Problem Admission Diagnosis/Problem Gastroenteritis Subjective Update: Patient is stable oxygen comes overnight currently requiring 8 L via nasal cannula. Patient states that she feels her breathing is slightly worse today compared to the previous day. Patient denies any chest pains, abdominal pains. She does describe some nausea and lightheadedness with standing. Patient denies any further diarrhea. Remainder of review of systems was negative except those listed above. - Patient Data Vitals - Most Recent: Last Vital Signs Temp 98.4 F 09/03/21 04:00 Pulse 72 09/03/21 04:00 Resp 22 H 09/03/21 04:00 BP 102/77 09/03/21 04:00 Pulse Ox 89 L 09/03/21 04:00 Weight - Most Recent: 303 lb 6.4 oz I&O - Last 24 Hours: Intake & Output 09/02/21 09/02/21 09/03/21 14:59 22:59 06:59 Intake Total 725 780 540 Balance 725 780 540 Lab Results Last 24 Hours: Laboratory Results - last 24 hr 09/02/21 09/03/21 Range/Units 06:32 05:20 PT 28.9 H D (9.0-12.0) SEC INR 2.9 H (0.9-1.2) Sodium 136 (136-145) mmol/L Potassium 4.6 (3.5-5.1) mmol/L Chloride 98 (98-107) mmol/L Carbon Dioxide 29 (21-32) mmol/L Anion Gap 13.6 H (7-13) mEq/L BUN 14 (7-18) mg/dL Creatinine 0.68 (0.55-1.02) mg/dL Est Cr Clr Drug Dosing 96.51 mL/min Estimated GFR (MDRD) > 60 Glucose 107 H (70-99) mg/dL Calcium 8.1 L (8.5-10.1) mg/dL Ramiro Results Last 24 Hours: Microbiology 08/30/21 10:55 Aerobic Blood Culture - Preliminary Blood - Arm, Left NO GROWTH AFTER 3 DAYS Anaerobic Blood Culture - Preliminary NO GROWTH AFTER 3 DAYS 08/30/21 11:00 Aerobic Blood Culture - Preliminary Blood - Arm, Right NO GROWTH AFTER 3 DAYS Anaerobic Blood Culture - Preliminary NO GROWTH AFTER 3 DAYS 09/01/21 00:10 Urine Culture - Preliminary Urine, Clean Catch Med Orders - Current: Current Medications Acetaminophen (Acetaminophen 325 Mg Tab) 650 mg PO Q4H PRN PRN Reason: Fever Last Admin: 09/02/21 01:01 Dose: 650 mg Documented by: Albuterol (Albuterol 6.7 Gm Inhaler) 0 gm INH Q4HR PRN PRN Reason: Shortness of Breath Last Admin: 09/01/21 11:30 Dose: 2 puff Documented by: Dexamethasone (Dexamethasone 6 Mg Tablet) 6 mg PO DAILY [facility] Stop: 09/08/21 09:01 Last Admin: 09/02/21 09:56 Dose: 6 mg Documented by: Docusate Sodium (Docusate Sodium 100 Mg Cap) 100 mg PO DAILY PRN PRN Reason: Constipation Famotidine (Famotidine 20 Mg Tab) 20 mg PO DAILY [facility] Last Admin: 09/02/21 09:55 Dose: 20 mg Documented by: Remdesivir 100 mg/ Sodium (Chloride) 100 mls @ 100 mls/hr IV Q24H [facility] Stop: 09/03/21 09:59 Last Admin: 09/02/21 09:57 Dose: 100 mls/hr Documented by: Sodium Chloride (Normal Saline) 500 mls @ 999 mls/hr IV .BOLUS [facility] Last Admin: 09/01/21 10:25 Dose: 999 mls/hr Documented by: Loperamide HCl (Loperamide 2 Mg Cap) 2 mg PO ASDIRECTED PRN PRN Reason: Diarrhea Metoprolol Tartrate (Metoprolol Tartrate 25 Mg Tab) 50 mg PO 0900,2100 [facility] Last Admin: 09/02/21 20:31 Dose: 50 mg Documented by: Mometasone Furoate/Formoterol Fumar (Formoterol/Mometasone 200-5 Mcg 8.8 Gm Inhaler) 2 puff IH BID [facility] Last Admin: 09/02/21 20:30 Dose: 2 puff Documented by: Ondansetron HCl (Ondansetron 4 Mg/2 Ml Sdv) 4 mg IVPUSH Q6H PRN PRN Reason: Nausea/Vomiting Last Admin: 09/03/21 05:01 Dose: 4 mg Documented by: Polyethylene Glycol (Polyethylene Glycol 3350 Powder 17 Gm Packet) 17 gm PO DAILY PRN PRN Reason: Constipation Sodium Chloride (Sodium Chloride 0.9% 10 Ml Syringe) 10 ml FLUSH ASDIRECTED PRN PRN Reason: Keep Vein Open Last Admin: 09/02/21 00:45 Dose: 10 ml Documented by: Warfarin Sodium (Pharmacy To Dose - Warfarin) 0 dose .XX ASDIRECTED [facility] Discontinued Medications Acetaminophen (Acetaminophen 325 Mg Tab) 975 mg PO NOW ONE Stop: 08/30/21 10:50 Last Admin: 08/30/21 11:44 Dose: Not Given Documented by: Acetaminophen (Acetaminophen 500 Mg Tab) 1,000 mg PO ONETIME ONE Stop: 08/30/21 13:40 Last Admin: 08/30/21 13:47 Dose: 1,000 mg Documented by: Diltiazem HCl (Diltiazem 25 Mg/5 Ml Sdv) 20 mg IVPUSH ONETIME ONE Stop: 08/30/21 22:40 Last Admin: 08/30/21 23:18 Dose: 20 mg Documented by: Sodium Chloride (Normal Saline) 1,000 mls @ 999 mls/hr IV .BOLUS ONE Stop: 08/30/21 12:25 Last Admin: 08/30/21 11:33 Dose: 999 mls/hr Documented by: Lactated Ringer's (Ringers, Lactated) 1,000 mls @ 125 mls/hr IV ASDIRECTED [facility] Stop: 08/30/21 21:14 Last Infusion: 08/30/21 21:58 Dose: Infused Documented by: Magnesium Sulfate 2 gm/ Premix 50 mls @ 25 mls/hr IV ONETIME ONE Stop: 08/30/21 21:41 Last Admin: 08/30/21 20:20 Dose: 25 mls/hr Documented by: Remdesivir 200 mg/ Sodium (Chloride) 250 mls @ 250 mls/hr IV ONETIME ONE Stop: 08/30/21 21:00 Last Infusion: 08/30/21 21:57 Dose: Infused Documented by: Lactated Ringer's (Ringers, Lactated) 1,000 mls @ 75 mls/hr IV ASDIRECTED [facility] Last Admin: 08/31/21 00:41 Dose: 75 mls/hr Documented by: Lactated Ringer's (Ringers, Lactated) 1,000 mls @ 100 mls/hr IV ASDIRECTED [facility] Last Admin: 08/30/21 22:00 Dose: 100 mls/hr Documented by: Diltiazem HCl 125 mg/ Sodium (Chloride) 125 mls @ 5 mls/hr IV TITRATE [facility]; Protocol Last Admin: 08/30/21 23:18 Dose: 5 mg/hr, 5 mls/hr Documented by: Lactated Ringer's (Ringers, Lactated) 500 mls @ 999 mls/hr IV .BOLUS ONE Stop: 08/31/21 00:15 Last Infusion: 08/31/21 00:37 Dose: Infused Documented by: Lisinopril (Lisinopril 20 Mg Tab) 40 mg PO DAILY [facility] Metoprolol Tartrate (Metoprolol Tartrate 25 Mg Tab) 25 mg PO Q12H [facility] Last Admin: 08/30/21 19:35 Dose: 25 mg Documented by: Metoprolol Tartrate (Metoprolol Tartrate 5 Mg/5 Ml Sdv) 5 mg IVPUSH ONETIME ONE Stop: 08/30/21 19:44 Last Admin: 08/30/21 20:03 Dose: 5 mg Documented by: Metoprolol Tartrate (Metoprolol Tartrate 5 Mg/5 Ml Sdv) 5 mg IVPUSH ONETIME ONE Stop: 08/30/21 21:48 Last Admin: 08/30/21 22:09 Dose: 5 mg Documented by: Metoprolol Tartrate (Metoprolol Tartrate 25 Mg Tab) 50 mg PO Q12H [facility] Last Admin: 09/02/21 09:55 Dose: 50 mg Documented by: Ondansetron HCl (Ondansetron 4 Mg/2 Ml Sdv) 4 mg IV ONETIME ONE Stop: 08/30/21 10:50 Last Admin: 08/30/21 11:33 Dose: 4 mg Documented by: Potassium Chloride (Potassium Chloride 10 Meq Tab.Er) 40 meq PO ONETIME ONE Stop: 08/30/21 19:44 Last Admin: 08/30/21 20:21 Dose: 40 meq Documented by: Warfarin Sodium (Warfarin 2 Mg Tab) 8 mg PO ONETIME ONE Stop: 08/31/21 14:01 Last Admin: 08/31/21 17:13 Dose: 8 mg Documented by: Warfarin Sodium (Warfarin 5 Mg Tab) 5 mg PO ONETIME ONE Stop: 09/01/21 14:01 Last Admin: 09/01/21 13:00 Dose: 5 mg Documented by: Warfarin Sodium (Warfarin 1 Mg Tab) 3 mg PO ONETIME ONE Stop: 09/02/21 14:01 Last Admin: 09/02/21 15:01 Dose: 3 mg Documented by: - Exam Quality Assessment: Supplemental Oxygen General: Alert, Oriented HEENT: Pupils Equal Neck: Supple Lungs: Decreased Breath Sounds, Crackles Cardiovascular: Regular Rate, Irregular Rhythm GI/Abdominal Exam: Normal Bowel Sounds, Soft, Non-Tender Back Exam: Normal Inspection Extremities: Normal Inspection Peripheral Pulses: 2+: Radial (L), Radial (R) Skin: Warm, Dry Neurological: No New Focal Deficit Psy/Mental Status: Alert - Patient Data Lab Results Last 24 hrs: Laboratory Results - last 24 hr 09/02/21 09/03/21 Range/Units 06:32 05:20 PT 28.9 H D (9.0-12.0) SEC INR 2.9 H (0.9-1.2) Sodium 136 (136-145) mmol/L Potassium 4.6 (3.5-5.1) mmol/L Chloride 98 (98-107) mmol/L Carbon Dioxide 29 (21-32) mmol/L Anion Gap 13.6 H (7-13) mEq/L BUN 14 (7-18) mg/dL Creatinine 0.68 (0.55-1.02) mg/dL Est Cr Clr Drug Dosing 96.51 mL/min Estimated GFR (MDRD) > 60 Glucose 107 H (70-99) mg/dL Calcium 8.1 L (8.5-10.1) mg/dL Result Diagrams: 08/31/21 07:58 09/03/21 05:20 Ramiro Results Last 24 hrs: Microbiology 08/30/21 10:55 Aerobic Blood Culture - Preliminary Blood - Arm, Left NO GROWTH AFTER 3 DAYS Anaerobic Blood Culture - Preliminary NO GROWTH AFTER 3 DAYS 08/30/21 11:00 Aerobic Blood Culture - Preliminary Blood - Arm, Right NO GROWTH AFTER 3 DAYS Anaerobic Blood Culture - Preliminary NO GROWTH AFTER 3 DAYS 09/01/21 00:10 Urine Culture - Preliminary Urine, Clean Catch Sepsis Event Note - Evaluation Sepsis Screening Result: No Definite Risk - Focused Exam Vital Signs: Vital Signs Temp Temp Pulse Pulse Resp BP BP 09/03/21 04:00 98.4 F 72 22 H 102/77 09/03/21 00:00 0 F L 98.2 F 77 24 H 115/81 09/02/21 20:31 78 104/64 09/02/21 20:00 98.9 F 89 22 H 103/59 L Pulse Ox 09/03/21 04:00 89 L 09/03/21 00:00 87 L 09/02/21 20:31 09/02/21 20:00 89 L - Problem List & Annotations (1) Acute respiratory failure with hypoxia SNOMED Code(s): 10802302, 510100834 Code(s): J96.01 - ACUTE RESPIRATORY FAILURE WITH HYPOXIA Status: Acute Current Visit: Yes (2) Pneumonia due to COVID-19 virus SNOMED Code(s): 983851114427403596 Code(s): U07.1 - COVID-19; J12.82 - PNEUMONIA DUE TO CORONAVIRUS DISEASE 2018 Status: Acute Current Visit: Yes (3) Atrial fibrillation SNOMED Code(s): 32071231 Code(s): I48.91 - UNSPECIFIED ATRIAL FIBRILLATION Status: Acute Current Visit: Yes (4) Atrial fibrillation with RVR SNOMED Code(s): 963107031608538 Code(s): I48.91 - UNSPECIFIED ATRIAL FIBRILLATION Status: Acute Current Visit: Yes - Problem List Review Problem List Initiated/Reviewed/Updated: Yes - My Orders Last 24 Hours: My Active Orders 09/02/21 09:45 Docusate Sodium [Colace] 100 mg PO DAILY PRN 09/02/21 16:50 Dietary Supplements [RC] TIDMEALS 09/02/21 21:00 Metoprolol Tartrate [Lopressor] 50 mg PO 0900,2099 - Plan Plan:: # ACUTE CONDITIONS: Acute COVID 19 viral pneumonia Acute hypoxic respiratory failure 2/2 to above Acute gastroenteritis secondary to above Hypovolemic hyponatremia 2/2 above - Currently requiring oxygen via nasal cannula - increased need to 8L today - will trial HFNC today - maintains full CODE STATUS - - Start date 08/31/21 -remdesivir per protocol, dexamethasone per protocol, lab monitoring per protocol - Blood cultures negative - imodium PRN for diarrhea - improved - IS while awake - continue warfarin Rx to dose with INR goal 2-3 given hx of DVT/PE and current COVID 19 # Hypokalemia 2/2 above -Resolved, diarrhea significantly improved # Atrial fibrillation with rvr -new onset - likely secondary to above and obesity/likely ALYSSA -discussed possibility of PE but patient already on warfarin and now hemodynamically stable - CTA unlikely to change current management -metoprolol 50 mg PO BID - off diltiazem drip 09/01/21 - rates better controlled -recommend TTE as outpatient # CHRONIC CONDITIONS: - Morbid obesity: BMI 45.7 on admit - Chronic asthma: continue home inhalers - Essential HTN: hold lisinopril 40mg once daily given some hypotension - Chronic pain, diffuse: continue acetaminophen at home dose - Hx of DVT/PE: warfarin Rx to dose with goal INR 2-3 - GERD without esophagitis: continue home med Code status: Full Code DVT prophylaxis: warfarin Further care for acute hypoxic respiratory failure
[2021-09-03] MEDS: REMDESIVIR 100 MG in Sodium Chloride 0.9% 100 ML IV SCH (09:42)
[2021-09-03] MEDS: Metoprolol Tartrate 25 MG Tab PO SCH ×2 (09:43→21:22)
[2021-09-03] MEDS: Dexamethasone 6 MG TABLET PO SCH (09:48)
[2021-09-03] MEDS: Famotidine 20 MG Tab PO SCH (09:48)
[2021-09-03] MEDS: Formoterol/Mometasone 200-5 MCG 8.8 GM Inhaler IH SCH ×2 (09:51→21:23)
[2021-09-03] MEDS ORDERED: guaiFENesin/Dextromethorphan 100-10 MG/5 ML Soln 5 ML Cup PO PRN (19:25)
[2021-09-04 06:47] LABS: ANION GAP 12.6 mEq/L (7-13); CHLORIDE,CL 100 mmol/L (98-107); SODIUM,NA 138 mmol/L (136-145)
--- NOTE | 2021-09-04 07:12 | PCM.PN ---
- General Info Date of Service: 09/04/21 Admission Dx/Problem (Free Text): Admission Diagnosis/Problem Admission Diagnosis/Problem Gastroenteritis Subjective Update: Christine had worsening oxygen saturations and is now requiring high flow nasal cannula 40 L 91 FiO2. Patient states that she has increased anxiety and feels that her breathing is worse. Patient denies any chest pains, abdominal pains. States that her nausea and lightheadedness are improved after increased oral intake yesterday. Patient denies any further diarrhea. Remainder of review of systems was negative except those listed above. - Patient Data Vitals - Most Recent: Last Vital Signs Temp 97.5 F 09/04/21 03:27 Pulse 88 09/04/21 03:27 Resp 24 H 09/04/21 03:27 BP 111/69 09/04/21 03:27 Pulse Ox 93 L 09/04/21 03:27 Weight - Most Recent: 301 lb 9.6 oz I&O - Last 24 Hours: Intake & Output 09/03/21 09/04/21 09/04/21 22:59 06:59 14:59 Intake Total 3320 400 800 Balance 3320 400 800 Lab Results Last 24 Hours: Laboratory Results - last 24 hr 09/04/21 Range/Units 06:15 Sodium 138 (136-145) mmol/L Potassium 4.6 (3.5-5.1) mmol/L Chloride 100 (98-107) mmol/L Carbon Dioxide 30 (21-32) mmol/L Anion Gap 12.6 (7-13) mEq/L Creatinine 0.63 (0.55-1.02) mg/dL Est Cr Clr Drug Dosing 104.18 mL/min Estimated GFR (MDRD) > 60 Glucose 107 H (70-99) mg/dL Calcium 8.1 L (8.5-10.1) mg/dL Ramiro Results Last 24 Hours: Microbiology 08/30/21 10:55 Aerobic Blood Culture - Preliminary Blood - Arm, Left NO GROWTH AFTER 4 DAYS Anaerobic Blood Culture - Preliminary NO GROWTH AFTER 4 DAYS 08/30/21 11:00 Aerobic Blood Culture - Preliminary Blood - Arm, Right NO GROWTH AFTER 4 DAYS Anaerobic Blood Culture - Preliminary NO GROWTH AFTER 4 DAYS 09/01/21 00:10 Urine Culture - Final Urine, Clean Catch Escherichia Coli Med Orders - Current: Current Medications Acetaminophen (Acetaminophen 325 Mg Tab) 650 mg PO Q4H PRN PRN Reason: Fever Last Admin: 09/02/21 01:01 Dose: 650 mg Documented by: Albuterol (Albuterol 6.7 Gm Inhaler) 0 gm INH Q4HR PRN PRN Reason: Shortness of Breath Last Admin: 09/01/21 11:30 Dose: 2 puff Documented by: Dexamethasone (Dexamethasone 6 Mg Tablet) 6 mg PO DAILY [facility] Stop: 09/08/21 09:01 Last Admin: 09/03/21 09:48 Dose: 6 mg Documented by: Docusate Sodium (Docusate Sodium 100 Mg Cap) 100 mg PO DAILY PRN PRN Reason: Constipation Famotidine (Famotidine 20 Mg Tab) 20 mg PO DAILY [facility] Last Admin: 09/03/21 09:48 Dose: 20 mg Documented by: Guaifenesin/Dextromethorphan (Guaifenesin/Dextromethorphan 100-10 Mg/5 Ml Soln 5 Ml Cup) 10 ml PO Q6H PRN PRN Reason: Cough Last Admin: 09/03/21 21:29 Dose: 10 ml Documented by: Sodium Chloride (Normal Saline) 500 mls @ 999 mls/hr IV .BOLUS [facility] Last Admin: 09/01/21 10:25 Dose: 999 mls/hr Documented by: Loperamide HCl (Loperamide 2 Mg Cap) 2 mg PO ASDIRECTED PRN PRN Reason: Diarrhea Metoprolol Tartrate (Metoprolol Tartrate 25 Mg Tab) 50 mg PO 0900,2100 [facility] Last Admin: 09/03/21 21:22 Dose: 50 mg Documented by: Mometasone Furoate/Formoterol Fumar (Formoterol/Mometasone 200-5 Mcg 8.8 Gm Inha ler) 2 puff IH BID [facility] Last Admin: 09/03/21 21:23 Dose: 2 puff Documented by: Ondansetron HCl (Ondansetron 4 Mg/2 Ml Sdv) 4 mg IVPUSH Q6H PRN PRN Reason: Nausea/Vomiting Last Admin: 09/03/21 05:01 Dose: 4 mg Documented by: Polyethylene Glycol (Polyethylene Glycol 3350 Powder 17 Gm Packet) 17 gm PO DAILY PRN PRN Reason: Constipation Sodium Chloride (Sodium Chloride 0.9% 10 Ml Syringe) 10 ml FLUSH ASDIRECTED PRN PRN Reason: Keep Vein Open Last Admin: 09/02/21 00:45 Dose: 10 ml Documented by: Warfarin Sodium (Pharmacy To Dose - Warfarin) 0 dose .XX ASDIRECTED [facility] Discontinued Medications Acetaminophen (Acetaminophen 325 Mg Tab) 975 mg PO NOW ONE Stop: 08/30/21 10:50 Last Admin: 08/30/21 11:44 Dose: Not Given Documented by: Acetaminophen (Acetaminophen 500 Mg Tab) 1,000 mg PO ONETIME ONE Stop: 08/30/21 13:40 Last Admin: 08/30/21 13:47 Dose: 1,000 mg Documented by: Diltiazem HCl (Diltiazem 25 Mg/5 Ml Sdv) 20 mg IVPUSH ONETIME ONE Stop: 08/30/21 22:40 Last Admin: 08/30/21 23:18 Dose: 20 mg Documented by: Sodium Chloride (Normal Saline) 1,000 mls @ 999 mls/hr IV .BOLUS ONE Stop: 08/30/21 12:25 Last Admin: 08/30/21 11:33 Dose: 999 mls/hr Documented by: Lactated Ringer's (Ringers, Lactated) 1,000 mls @ 125 mls/hr IV ASDIRECTED [facility] Stop: 08/30/21 21:14 Last Infusion: 08/30/21 21:58 Dose: Infused Documented by: Magnesium Sulfate 2 gm/ Premix 50 mls @ 25 mls/hr IV ONETIME ONE Stop: 08/30/21 21:41 Last Admin: 08/30/21 20:20 Dose: 25 mls/hr Documented by: Remdesivir 200 mg/ Sodium (Chloride) 250 mls @ 250 mls/hr IV ONETIME ONE Stop: 08/30/21 21:00 Last Infusion: 08/30/21 21:57 Dose: Infused Documented by: Remdesivir 100 mg/ Sodium (Chloride) 100 mls @ 100 mls/hr IV Q24H [facility] Stop: 09/03/21 09:59 Last Admin: 09/03/21 09:42 Dose: 100 mls/hr Documented by: Lactated Ringer's (Ringers, Lactated) 1,000 mls @ 75 mls/hr IV ASDIRECTED [facility] Last Admin: 08/31/21 00:41 Dose: 75 mls/hr Documented by: Lactated Ringer's (Ringers, Lactated) 1,000 mls @ 100 mls/hr IV ASDIRECTED [facility] Last Admin: 08/30/21 22:00 Dose: 100 mls/hr Documented by: Diltiazem HCl 125 mg/ Sodium (Chloride) 125 mls @ 5 mls/hr IV TITRATE [facility]; P rotocol Last Admin: 08/30/21 23:18 Dose: 5 mg/hr, 5 mls/hr Documented by: Lactated Ringer's (Ringers, Lactated) 500 mls @ 999 mls/hr IV .BOLUS ONE Stop: 08/31/21 00:15 Last Infusion: 08/31/21 00:37 Dose: Infused Documented by: Lisinopril (Lisinopril 20 Mg Tab) 40 mg PO DAILY [facility] Metoprolol Tartrate (Metoprolol Tartrate 25 Mg Tab) 25 mg PO Q12H [facility] Last Admin: 08/30/21 19:35 Dose: 25 mg Documented by: Metoprolol Tartrate (Metoprolol Tartrate 5 Mg/5 Ml Sdv) 5 mg IVPUSH ONETIME ONE Stop: 08/30/21 19:44 Last Admin: 08/30/21 20:03 Dose: 5 mg Documented by: Metoprolol Tartrate (Metoprolol Tartrate 5 Mg/5 Ml Sdv) 5 mg IVPUSH ONETIME ONE Stop: 08/30/21 21:48 Last Admin: 08/30/21 22:09 Dose: 5 mg Documented by: Metoprolol Tartrate (Metoprolol Tartrate 25 Mg Tab) 50 mg PO Q12H [facility] Last Admin: 09/02/21 09:55 Dose: 50 mg Documented by: Ondansetron HCl (Ondansetron 4 Mg/2 Ml Sdv) 4 mg IV ONETIME ONE Stop: 08/30/21 10:50 Last Admin: 08/30/21 11:33 Dose: 4 mg Documented by: Potassium Chloride (Potassium Chloride 10 Meq Tab.Er) 40 meq PO ONETIME ONE Stop: 08/30/21 19:44 Last Admin: 08/30/21 20:21 Dose: 40 meq Documented by: Warfarin Sodium (Warfarin 2 Mg Tab) 8 mg PO ONETIME ONE Stop: 08/31/21 14:01 Last Admin: 08/31/21 17:13 Dose: 8 mg Documented by: Warfarin Sodium (Warfarin 5 Mg Tab) 5 mg PO ONETIME ONE Stop: 09/01/21 14:01 Last Admin: 09/01/21 13:00 Dose: 5 mg Documented by: Warfarin Sodium (Warfarin 1 Mg Tab) 3 mg PO ONETIME ONE Stop: 09/02/21 14:01 Last Admin: 09/02/21 15:01 Dose: 3 mg Documented by: Warfarin Sodium (Warfarin 1 Mg Tab) 1 mg PO ONETIME ONE Stop: 09/03/21 14:01 Last Admin: 09/03/21 14:30 Dose: 1 mg Documented by: - Exam Quality Assessment: Supplemental Oxygen General: Alert, Oriented HEENT: Pupils Equal, Pupils Reactive Neck: Supple Lungs: Decreased Breath Sounds, Crackles, Wheezing Cardiovascular: Regular Rate, Irregular Rhythm GI/Abdominal Exam: Normal Bowel Sounds, Soft, Non-Tender Back Exam: Normal Inspection Extremities: Normal Inspection Peripheral Pulses: 2+: Radial (L), Radial (R) Skin: Warm, Dry Neurological: No New Focal Deficit Psy/Mental Status: Alert - Patient Data Lab Results Last 24 hrs: Laboratory Results - last 24 hr 09/04/21 Range/Units 06:15 Sodium 138 (136-145) mmol/L Potassium 4.6 (3.5-5.1) mmol/L Chloride 100 (98-107) mmol/L Carbon Dioxide 30 (21-32) mmol/L Anion Gap 12.6 (7-13) mEq/L Creatinine 0.63 (0.55-1.02) mg/dL Est Cr Clr Drug Dosing 104.18 mL/min Estimated GFR (MDRD) > 60 Glucose 107 H (70-99) mg/dL Calcium 8.1 L (8.5-10.1) mg/dL Result Diagrams: 09/04/21 06:15 09/04/21 06:15 Ramiro Results Last 24 hrs: Microbiology 08/30/21 10:55 Aerobic Blood Culture - Preliminary Blood - Arm, Left NO GROWTH AFTER 4 DAYS Anaerobic Blood Culture - Preliminary NO GROWTH AFTER 4 DAYS 08/30/21 11:00 Aerobic Blood Culture - Preliminary Blood - Arm, Right NO GROWTH AFTER 4 DAYS Anaerobic Blood Culture - Preliminary NO GROWTH AFTER 4 DAYS 09/01/21 00:10 Urine Culture - Final Urine, Clean Catch Escherichia Coli Sepsis Event Note - Evaluation Sepsis Screening Result: Possible Sepsis Risk - Focused Exam Vital Signs: Vital Signs Temp Pulse Pulse Resp BP BP Pulse Ox 09/04/21 03:27 97.5 F 88 24 H 111/69 93 L 09/03/21 23:04 97 F 98 18 105/63 94 L 09/03/21 21:22 94 102/66 09/03/21 20:00 98.3 F 88 20 102/66 94 L - Problem List & Annotations (1) Acute respiratory failure with hypoxia SNOMED Code(s): 61753282, 049902751 Code(s): J96.01 - ACUTE RESPIRATORY FAILURE WITH HYPOXIA Status: Acute Current Visit: Yes (2) Pneumonia due to COVID-19 virus SNOMED Code(s): 765647701123256459 Code(s): U07.1 - COVID-19; J12.82 - PNEUMONIA DUE TO CORONAVIRUS DISEASE 2018 Status: Acute Current Visit: Yes (3) Atrial fibrillation SNOMED Code(s): 45424453 Code(s): I48.91 - UNSPECIFIED ATRIAL FIBRILLATION Status: Acute Current Visit: Yes (4) Atrial fibrillation with RVR SNOMED Code(s): 473745428792475 Code(s): I48.91 - UNSPECIFIED ATRIAL FIBRILLATION Status: Acute Current Visit: Yes - Problem List Review Problem List Initiated/Reviewed/Updated: Yes - My Orders Last 24 Hours: My Active Orders 09/03/21 19:25 Dextromethorphan/guaiFENesin [Robitussin DM] 10 ml PO Q6H PRN 09/04/21 06:15 BASIC METABOLIC PANEL,BMP [CHEM] AM CBC WITH AUTO DIFF [HEME] AM - Plan Plan:: # ACUTE CONDITIONS: Acute COVID 19 viral pneumonia Acute hypoxic respiratory failure 2/2 to above Acute gastroenteritis secondary to above Hypovolemic hyponatremia 2/2 above - Required HFNC 09/03/21 -Currently requiring oxygen via HFNC 91FiO2- maintains full CODE STATUS - - Start date 08/31/21 -remdesivir per protocol, dexamethasone per protocol, lab monitoring per protocol - Blood cultures negative - Imodium PRN for diarrhea - improved - IS while awake - continue warfarin Rx to dose with INR goal 2-3 given hx of DVT/PE and current COVID 19 - PRN 0.5 mg ativan Q12 added given significant anxiety related to dyspnea # Hypokalemia 2/2 above -Resolved, diarrhea significantly improved # Atrial fibrillation with rvr -new onset - likely secondary to above and obesity/likely ALYSSA -discussed possibility of PE but patient already on warfarin with therapeutic INR - CTA unlikely to change current management -metoprolol 50 mg PO BID - off diltiazem drip 09/01/21 - rates better controlled -recommend TTE as outpatient # CHRONIC CONDITIONS: - Morbid obesity: BMI 45.7 on admit - Chronic asthma: continue home inhalers - Essential HTN: hold lisinopril 40mg once daily given hypotension - Chronic pain, diffuse: continue acetaminophen at home dose - Hx of DVT/PE: warfarin Rx to dose with goal INR 2-3 - GERD without esophagitis: continue home med - added tums Code status: Full Code DVT prophylaxis: warfarin Dispo: Further care for acute hypoxic respiratory failure
[2021-09-04] MEDS ORDERED: Benzonatate 100 MG Cap PO PRN (07:53)
[2021-09-04] MEDS: Metoprolol Tartrate 25 MG Tab PO SCH ×2 (09:17→22:05)
[2021-09-04] MEDS: Famotidine 20 MG Tab PO SCH (09:18)
[2021-09-04] MEDS: Dexamethasone 6 MG TABLET PO SCH (09:18)
[2021-09-04] MEDS: Formoterol/Mometasone 200-5 MCG 8.8 GM Inhaler IH SCH ×2 (09:19→22:06)
[2021-09-04] MEDS: Albuterol 6.7 GM Inhaler INH PRN (09:20)
[2021-09-04] MEDS ORDERED: Calcium Carbonate 500 MG Tab.Chew PO PRN (09:28)
[2021-09-04] MEDS ORDERED: Melatonin 3 MG Tab PO PRN (09:29)
[2021-09-04] MEDS: LORazepam 0.5 MG Tab PO PRN ×2 (09:48→22:04)
[2021-09-04] MEDS: Sodium Chloride 0.9% 10 ML Syringe FLUSH PRN ×3 (10:19→22:14)
[2021-09-04] MEDS: Docusate Sodium 100 MG Cap PO PRN (18:27)
--- NOTE | 2021-09-05 06:48 | PCM.PN ---
- General Info Date of Service: 09/05/21 Admission Dx/Problem (Free Text): Admission Diagnosis/Problem Admission Diagnosis/Problem Gastroenteritis Subjective Update: Christine had stable oxygen saturations and is requiring high flow nasal cannula 40 L 92 FiO2. Patient states that her anxiety is significantly improved after the p.o. Ativan yesterday and she was able to have a good night of sleep. Patient denies any chest pains, abdominal pains, lightheadedness or dizziness. Patient denies any further diarrhea. Remainder of review of systems was negative except those listed above. - Patient Data Vitals - Most Recent: Last Vital Signs Temp 97 F 09/05/21 05:06 Pulse 97 09/05/21 05:06 Resp 28 H 09/05/21 05:06 BP 131/82 09/05/21 05:06 Pulse Ox 92 L 09/05/21 06:29 Weight - Most Recent: 298 lb 6.4 oz I&O - Last 24 Hours: Intake & Output 09/04/21 09/04/21 09/05/21 14:59 22:59 06:59 Intake Total 1700 640 200 Output Total 300 1150 Balance 1400 640 -950 Lab Results Last 24 Hours: Laboratory Results - last 24 hr 09/04/21 09/04/21 09/04/21 Range/Units 06:15 06:15 06:15 WBC 7.3 (5.0-10.0) 10^3/uL RBC 4.72 (4.2-5.4) 10^6/uL Hgb 13.7 (12.0-16.0) g/dL Hct 41.8 (37.0-47.0) % MCV 88.6 (80-100) fL MCH 29.0 (27.0-34.0) pg MCHC 32.8 L (33.0-35.0) g/dL Plt Count 216 D (150-450) 10^3/uL Neut % (Auto) 75.7 H (42.2-75.2) % Lymph % (Auto) 12.4 L (20.5-50.1) % [place] % (Auto) 11.9 H (2-8) % Eos % (Auto) 0.0 L (1.0-3.0) % Baso % (Auto) 0.0 (0.0-1.0) % PT 32.5 H (9.0-12.0) SEC INR 3.3 H (0.9-1.2) Sodium 138 (136-145) mmol/L Potassium 4.6 (3.5-5.1) mmol/L Chloride 100 (98-107) mmol/L Carbon Dioxide 30 (21-32) mmol/L Anion Gap 12.6 (7-13) mEq/L BUN 12 (7-18) mg/dL Creatinine 0.63 (0.55-1.02) mg/dL Est Cr Clr Drug Dosing 104.18 mL/min Estimated GFR (MDRD) > 60 Glucose 107 H (70-99) mg/dL Calcium 8.1 L (8.5-10.1) mg/dL Ramiro Results Last 24 Hours: Microbiology 08/30/21 10:55 Aerobic Blood Culture - Final Blood - Arm, Left NO GROWTH AFTER 5 DAYS Anaerobic Blood Culture - Final NO GROWTH AFTER 5 DAYS 08/30/21 11:00 Aerobic Blood Culture - Final Blood - Arm, Right NO GROWTH AFTER 5 DAYS Anaerobic Blood Culture - Final NO GROWTH AFTER 5 DAYS Med Orders - Current: Current Medications Acetaminophen (Acetaminophen 325 Mg Tab) 650 mg PO Q4H PRN PRN Reason: Fever Last Admin: 09/02/21 01:01 Dose: 650 mg Documented by: Albuterol (Albuterol 6.7 Gm Inhaler) 0 gm INH Q4HR PRN PRN Reason: Shortness of Breath Last Admin: 09/04/21 09:20 Dose: 2 puff Documented by: Benzonatate (Benzonatate 100 Mg Cap) 100 mg PO Q6H PRN PRN Reason: Cough Last Admin: 09/04/21 22:03 Dose: 100 mg Documented by: Calcium Carbonate/Glycine (Calcium Carbonate 500 Mg Tab.Chew) 500 mg PO Q2H PRN PRN Reason: GERD Dexamethasone (Dexamethasone 6 Mg Tablet) 6 mg PO DAILY [facility] Stop: 09/08/21 09:01 Last Admin: 09/04/21 09:18 Dose: 6 mg Documented by: Docusate Sodium (Docusate Sodium 100 Mg Cap) 100 mg PO DAILY PRN PRN Reason: Constipation Last Admin: 09/04/21 18:27 Dose: 100 mg Documented by: Famotidine (Famotidine 20 Mg Tab) 20 mg PO DAILY [facility] Last Admin: 09/04/21 09:18 Dose: 20 mg Documented by: Sodium Chloride (Normal Saline) 500 mls @ 999 mls/hr IV .BOLUS [facility] Last Admin: 09/01/21 10:25 Dose: 999 mls/hr Documented by: Loperamide HCl (Loperamide 2 Mg Cap) 2 mg PO ASDIRECTED PRN PRN Reason: Diarrhea Lorazepam (Lorazepam 0.5 Mg Tab) 0.5 mg PO Q12H PRN PRN Reason: Anxiety Last Admin: 09/04/21 22:04 Dose: 0.5 mg Documented by: Melatonin (Melatonin 3 Mg Tab) 6 mg PO BEDTIME PRN PRN Reason: Sleep Metoprolol Tartrate (Metoprolol Tartrate 25 Mg Tab) 50 mg PO 0900,2100 [facility] Last Admin: 09/04/21 22:05 Dose: 50 mg Documented by: Mometasone Furoate/Formoterol Fumar (Formoterol/Mometasone 200-5 Mcg 8.8 Gm Inhaler) 2 puff IH BID [facility] Last Admin: 09/04/21 22:06 Dose: 2 puff Documented by: Ondansetron HCl (Ondansetron 4 Mg/2 Ml Sdv) 4 mg IVPUSH Q6H PRN PRN Reason: Nausea/Vomiting Last Admin: 09/03/21 05:01 Dose: 4 mg Documented by: Polyethylene Glycol (Polyethylene Glycol 3350 Powder 17 Gm Packet) 17 gm PO DAILY PRN PRN Reason: Constipation Sodium Chloride (Sodium Chloride 0.9% 10 Ml Syringe) 10 ml FLUSH ASDIRECTED PRN PRN Reason: Keep Vein Open Last Admin: 09/04/21 22:14 Dose: 10 ml Documented by: Warfarin Sodium (Pharmacy To Dose - Warfarin) 0 dose .XX ASDIRECTED [facility] Discontinued Medications Acetaminophen (Acetaminophen 325 Mg Tab) 975 mg PO NOW ONE Stop: 08/30/21 10:50 Last Admin: 08/30/21 11:44 Dose: Not Given Documented by: Acetaminophen (Acetaminophen 500 Mg Tab) 1,000 mg PO ONETIME ONE Stop: 08/30/21 13:40 Last Admin: 08/30/21 13:47 Dose: 1,000 mg Documented by: Diltiazem HCl (Diltiazem 25 Mg/5 Ml Sdv) 20 mg IVPUSH ONETIME ONE Stop: 08/30/21 22:40 Last Admin: 08/30/21 23:18 Dose: 20 mg Documented by: Guaifenesin/Dextromethorphan (Guaifenesin/Dextromethorphan 100-10 Mg/5 Ml Soln 5 Ml Cup) 10 ml PO Q6H PRN PRN Reason: Cough Last Admin: 09/03/21 21:29 Dose: 10 ml Documented by: Sodium Chloride (Normal Saline) 1,000 mls @ 999 mls/hr IV .BOLUS ONE Stop: 08/30/21 12:25 Last Admin: 08/30/21 11:33 Dose: 999 mls/hr Documented by: Lactated Ringer's (Ringers, Lactated) 1,000 mls @ 125 mls/hr IV ASDIRECTED [facility] Stop: 08/30/21 21:14 Last Infusion: 08/30/21 21:58 Dose: Infused Documented by: Magnesium Sulfate 2 gm/ Premix 50 mls @ 25 mls/hr IV ONETIME ONE Stop: 08/30/21 21:41 Last Admin: 08/30/21 20:20 Dose: 25 mls/hr Documented by: Remdesivir 200 mg/ Sodium (Chloride) 250 mls @ 250 mls/hr IV ONETIME ONE Stop: 08/30/21 21:00 Last Infusion: 08/30/21 21:57 Dose: Infused Documented by: Remdesivir 100 mg/ Sodium (Chloride) 100 mls @ 100 mls/hr IV Q24H [facility] Stop: 09/03/21 09:59 Last Admin: 09/03/21 09:42 Dose: 100 mls/hr Documented by: Lactated Ringer's (Ringers, Lactated) 1,000 mls @ 75 mls/hr IV ASDIRECTED [facility] Last Admin: 08/31/21 00:41 Dose: 75 mls/hr Documented by: Lactated Ringer's (Ringers, Lactated) 1,000 mls @ 100 mls/hr IV ASDIRECTED [facility] Last Admin: 08/30/21 22:00 Dose: 100 mls/hr Documented by: Diltiazem HCl 125 mg/ Sodium (Chloride) 125 mls @ 5 mls/hr IV TITRATE [facility]; Protocol Last Admin: 08/30/21 23:18 Dose: 5 mg/hr, 5 mls/hr Documented by: Lactated Ringer's (Ringers, Lactated) 500 mls @ 999 mls/hr IV .BOLUS ONE Stop: 08/31/21 00:15 Last Infusion: 08/31/21 00:37 Dose: Infused Documented by: Lisinopril (Lisinopril 20 Mg Tab) 40 mg PO DAILY [facility] Metoprolol Tartrate (Metoprolol Tartrate 25 Mg Tab) 25 mg PO Q12H [facility] Last Admin: 08/30/21 19:35 Dose: 25 mg Documented by: Metoprolol Tartrate (Metoprolol Tartrate 5 Mg/5 Ml Sdv) 5 mg IVPUSH ONETIME ONE Stop: 08/30/21 19:44 Last Admin: 08/30/21 20:03 Dose: 5 mg Documented by: Metoprolol Tartrate (Metoprolol Tartrate 5 Mg/5 Ml Sdv) 5 mg IVPUSH ONETIME ONE Stop: 08/30/21 21:48 Last Admin: 08/30/21 22:09 Dose: 5 mg Documented by: Metoprolol Tartrate (Metoprolol Tartrate 25 Mg Tab) 50 mg PO Q12H [facility] Last Admin: 09/02/21 09:55 Dose: 50 mg Documented by: Ondansetron HCl (Ondansetron 4 Mg/2 Ml Sdv) 4 mg IV ONETIME ONE Stop: 08/30/21 10:50 Last Admin: 08/30/21 11:33 Dose: 4 mg Documented by: Potassium Chloride (Potassium Chloride 10 Meq Tab.Er) 40 meq PO ONETIME ONE Stop: 08/30/21 19:44 Last Admin: 08/30/21 20:21 Dose: 40 meq Documented by: Warfarin Sodium (Warfarin 2 Mg Tab) 8 mg PO ONETIME ONE Stop: 08/31/21 14:01 Last Admin: 08/31/21 17:13 Dose: 8 mg Documented by: Warfarin Sodium (Warfarin 5 Mg Tab) 5 mg PO ONETIME ONE Stop: 09/01/21 14:01 Last Admin: 09/01/21 13:00 Dose: 5 mg Documented by: Warfarin Sodium (Warfarin 1 Mg Tab) 3 mg PO ONETIME ONE Stop: 09/02/21 14:01 Last Admin: 09/02/21 15:01 Dose: 3 mg Documented by: Warfarin Sodium (Warfarin 1 Mg Tab) 1 mg PO ONETIME ONE Stop: 09/03/21 14:01 Last Admin: 09/03/21 14:30 Dose: 1 mg Documented by: - Exam Quality Assessment: Supplemental Oxygen General: Alert, Oriented HEENT: Pupils Equal, Pupils Reactive Neck: Supple Lungs: Decreased Breath Sounds, Crackles, Wheezing Cardiovascular: Regular Rate, Irregular Rhythm GI/Abdominal Exam: Normal Bowel Sounds, Soft, Non-Tender Back Exam: Normal Inspection Extremities: Normal Inspection Peripheral Pulses: 2+: Radial (L), Radial (R) Skin: Warm Neurological: No New Focal Deficit Psy/Mental Status: Alert - Patient Data Lab Results Last 24 hrs: Laboratory Results - last 24 hr 09/04/21 09/04/21 09/04/21 Range/Units 06:15 06:15 06:15 WBC 7.3 (5.0-10.0) 10^3/uL RBC 4.72 (4.2-5.4) 10^6/uL Hgb 13.7 (12.0-16.0) g/dL Hct 41.8 (37.0-47.0) % MCV 88.6 (80-100) fL MCH 29.0 (27.0-34.0) pg MCHC 32.8 L (33.0-35.0) g/dL Plt Count 216 D (150-450) 10^3/uL Neut % (Auto) 75.7 H (42.2-75.2) % Lymph % (Auto) 12.4 L (20.5-50.1) % [place] % (Auto) 11.9 H (2-8) % Eos % (Auto) 0.0 L (1.0-3.0) % Baso % (Auto) 0.0 (0.0-1.0) % PT 32.5 H (9.0-12.0) SEC INR 3.3 H (0.9-1.2) Sodium 138 (136-145) mmol/L Potassium 4.6 (3.5-5.1) mmol/L Chloride 100 (98-107) mmol/L Carbon Dioxide 30 (21-32) mmol/L Anion Gap 12.6 (7-13) mEq/L BUN 12 (7-18) mg/dL Creatinine 0.63 (0.55-1.02) mg/dL Est Cr Clr Drug Dosing 104.18 mL/min Estimated GFR (MDRD) > 60 Glucose 107 H (70-99) mg/dL Calcium 8.1 L (8.5-10.1) mg/dL Result Diagrams: 09/04/21 06:15 09/04/21 06:15 Ramiro Results Last 24 hrs: Microbiology 08/30/21 10:55 Aerobic Blood Culture - Final Blood - Arm, Left NO GROWTH AFTER 5 DAYS Anaerobic Blood Culture - Final NO GROWTH AFTER 5 DAYS 08/30/21 11:00 Aerobic Blood Culture - Final Blood - Arm, Right NO GROWTH AFTER 5 DAYS Anaerobic Blood Culture - Final NO GROWTH AFTER 5 DAYS Sepsis Event Note - Evaluation Sepsis Screening Result: Severe Sepsis Risk - Focused Exam Vital Signs: Vital Signs Temp Pulse Pulse Resp BP BP Pulse Ox 09/05/21 06:29 92 L 09/05/21 05:21 81 L 09/05/21 05:06 97 F 97 28 H 131/82 88 L 09/05/21 00:00 98 28 H 90 L 09/04/21 22:10 97 F 106 H 24 H 115/71 89 L 09/04/21 22:05 106 H 115/71 09/04/21 20:00 97.6 F 108 H 24 H 115/58 L 93 L - Problem List & Annotations (1) Acute respiratory failure with hypoxia SNOMED Code(s): 96903357, 566761230 Code(s): J96.01 - ACUTE RESPIRATORY FAILURE WITH HYPOXIA Status: Acute Current Visit: Yes (2) Pneumonia due to COVID-19 virus SNOMED Code(s): 071065395539161049 Code(s): U07.1 - COVID-19; J12.82 - PNEUMONIA DUE TO CORONAVIRUS DISEASE 2019 Status: Acute Current Visit: Yes (3) Atrial fibrillation SNOMED Code(s): 86362234 Code(s): I48.91 - UNSPECIFIED ATRIAL FIBRILLATION Status: Acute Current Visit: Yes (4) Atrial fibrillation with RVR SNOMED Code(s): 887036713529655 Code(s): I48.91 - UNSPECIFIED ATRIAL FIBRILLATION Status: Acute Current Visit: Yes - Problem List Review Problem List Initiated/Reviewed/Updated: Yes - My Orders Last 24 Hours: My Active Orders 09/04/21 07:53 Benzonatate [Tessalon Perles] 100 mg PO Q6H PRN 09/04/21 09:28 Calcium Carbonate [Tums] 500 mg PO Q2H PRN LORazepam [Ativan] 0.5 mg PO Q12H PRN 09/04/21 09:29 Melatonin 6 mg PO BEDTIME PRN - Plan Plan:: # ACUTE CONDITIONS: Acute COVID 19 viral pneumonia Acute hypoxic respiratory failure 2/2 to above Acute gastroenteritis secondary to above Hypovolemic hyponatremia 2/2 above - Required HFNC 09/03/21 -Currently requiring oxygen via HFNC 92FiO2- maintains full CODE STATUS - - Start date 08/31/21 - Remdesivir (completed) per protocol, dexamethasone per protocol, lab monitoring per protocol - Blood cultures negative - Imodium PRN for diarrhea - improved - IS while awake - continue warfarin Rx to dose with INR goal 2-3 given hx of DVT/PE and current COVID 19 - PRN 0.5 mg ativan Q12 added given significant anxiety related to dyspnea # Hypokalemia 2/2 above -Resolved, diarrhea significantly improved # Atrial fibrillation with rvr -new onset - likely secondary to above and obesity/likely ALYSSA -discussed possibility of PE but patient already on warfarin with therapeutic INR - CTA unlikely to change current management -metoprolol increased to 75 mg PO BID - off diltiazem drip 09/01/21 - -recommend TTE as outpatient # CHRONIC CONDITIONS: - Morbid obesity: BMI 45.7 on admit - Chronic asthma: continue home inhalers - Essential HTN: hold lisinopril 40mg once daily given hypotension - Chronic pain, diffuse: continue acetaminophen at home dose - Hx of DVT/PE: warfarin Rx to dose with goal INR 2-3 - GERD without esophagitis: continue home H2 and tums Code status: Full Code DVT prophylaxis: warfarin Dispo: Further care for acute hypoxic respiratory failure
[2021-09-05] MEDS: Docusate Sodium 100 MG Cap PO PRN (08:56)
[2021-09-05] MEDS: Metoprolol Tartrate 25 MG Tab PO SCH ×3 (08:56→21:18)
[2021-09-05] MEDS: Dexamethasone 6 MG TABLET PO SCH (08:56)
[2021-09-05] MEDS: Famotidine 20 MG Tab PO SCH (08:57)
[2021-09-05] MEDS: Formoterol/Mometasone 200-5 MCG 8.8 GM Inhaler IH SCH ×2 (08:58→21:23)
[2021-09-05] MEDS: LORazepam 0.5 MG Tab PO PRN (08:59)
[2021-09-05] MEDS ORDERED: Sodium Chloride 0.9% 10 ML Syringe FLUSH PRN (09:22)
[2021-09-05] MEDS ORDERED: Furosemide 40 MG/4 ML VIAL IVPUSH ONE (12:29)
--- NOTE | 2021-09-05 12:49 | CR ---
EXAMINATION: Chest 1V Frontal SEX: Female AGE: 51 years CLINICAL HISTORY: 51-year-old obese female with clinically "worsening" hypoxia- COVID positive. Interpretation: Abnormal. *Generalized increased peripheral "groundglass" lung densities (GG0) and basilar atelectasis on the left since comparison CXR 30 August 2021. Cardiac silhouette remains within normal limits and no alveolar edema or dependent pleural fluid accumulation. No new lung mass or hilar lymphadenopathy. Generally poor inspiratory effort with no sign of pneumothorax or pneumomediastinum. No free subdiaphragmatic air.
[2021-09-05] MEDS: Piperacillin/Tazobactam 4.5 GM in Sodium Chloride 0.9% 100 ML IV SCH ×3 (13:35→23:42)
[2021-09-05] MEDS ORDERED: LORazepam 2 MG/ML SDV IVPUSH ONE (17:51)
[2021-09-05 18:15] LABS: O2 DELIVERY DEVICE HI FLOW NASAL CANNU; PCO2 ARTERIAL 35 mmHg (35-45); PO2 ARTERIAL 50 mmHg (70-100)
[2021-09-05 18:16] LABS: ALLEN TEST POSITIVE; BASE EXCESS ARTERIAL 7 mmol/L ((-2)-(+3)); O2 SATURATION ARTERIAL 89 % (95-100)
--- NOTE | 2021-09-05 18:37 | PCM.SN.2 ---
- Free Text/Narrative Note: Patient continued to have worsening oxygen saturations with oxygen saturations 84-85% on 95 to 100% FiO2 high flow nasal cannula. Prolonged discussion was had with the patient and her daughter and she wishes to remain full code despite our discussion the patient has a low chance of survival if she were to need the carlin tilator. Attempted to contact 5 different facilities throughout the state to discuss a possible transfer and there are no available beds at this time and no critical care beds available. ABG was obtained which showed pH 7.53, PCO2 35, PaO2 50, bicarb 29. PA FiO2 ratio is 50 consistent with severe ARDS. Again chest x-ray from earlier today showed worsening bilateral interstitial infiltrates. Earlier today started patient on broad-spectrum antibiotics, utilized IV Lasix. Placed patient on CPAP with a PEEP of 8, 100% FiO2 and was able to improve oxygen saturations to low 90s. We'll continue to monitor patient closely and continue with current course.
[2021-09-05] MEDS: LORazepam 2 MG/ML SDV IVPUSH PRN (21:57)
[2021-09-06] MEDS: Piperacillin/Tazobactam 4.5 GM in Sodium Chloride 0.9% 100 ML IV SCH ×3 (05:14→17:59)
[2021-09-06] MEDS: LORazepam 2 MG/ML SDV IVPUSH PRN (05:16)
--- NOTE | 2021-09-06 05:36 | PCM.PN ---
- General Info Date of Service: 09/06/21 Admission Dx/Problem (Free Text): Admission Diagnosis/Problem Admission Diagnosis/Problem Gastroenteritis Subjective Update: Late on 09/05/21 patient continued to have worsening oxygen saturations with oxygen saturations 84-85% on 95 to 100% FiO2 high flow nasal cannula. Prolonged discussion was had with the patient and her daughter and she wishes to remain full code despite our discussion the patient has a low chance of survival if she were to need the ventilator. Attempted to contact 5 different facilities throughout the state to discuss a possible transfer and there are no available beds at this time and no critical care beds available. ABG was obtained which showed pH 7.53, PCO2 35, PaO2 50, bicarb 29. PA FiO2 ratio is 50 consistent with severe ARDS. Again chest x-ray from earlier today showed worsening bilateral interstitial infiltrates. Earlier today started patient on broad-spectrum antibiotics, utilized IV Lasix. Placed patient on CPAP with a PEEP of 8, 100% FiO2 and was able to improve oxygen saturations to low 90s. This AM patient maintains on CPAP. Oxygen saturations fluctuate 87-91%. Patien t alert and orientated x3. States SOB but denies any worsening dyspnea. Remainder review of systems difficult given patient's respiratory status. - Patient Data Vitals - Most Recent: Last Vital Signs Temp 97 F 09/06/21 03:18 Pulse 85 09/06/21 03:18 Resp 33 H 09/06/21 03:18 BP 119/68 09/06/21 03:18 Pulse Ox 91 L 09/06/21 03:18 Weight - Most Recent: 305 lb I&O - Last 24 Hours: Intake & Output 09/05/21 09/05/21 09/06/21 14:59 22:59 06:59 Intake Total 1440 25 15 Output Total 500 Balance 1440 25 -485 Lab Results Last 24 Hours: Laboratory Results - last 24 hr 09/05/21 09/05/21 Range/Units 06:20 17:35 PT 23.0 H (9.0-12.0) SEC INR 2.3 H (0.9-1.2) ABG pH 7.53 H (7.35-7.45) ABG pCO2 35 (35-45) mmHg ABG pO2 50 L (70-100) mmHg ABG HCO3 29.0 H (22-26) mmol/L ABG O2 Saturation 89 L (95-100) % ABG Base Excess 7 H ((-2)-(+3)) mmol/L Claudio Test Positive O2 Delivery Device Hi flow nasal cannu Med Orders - Current: Current Medications Acetaminophen (Acetaminophen 325 Mg Tab) 650 mg PO Q4H PRN PRN Reason: Fever Last Admin: 09/02/21 01:01 Dose: 650 mg Documented by: Albuterol (Albuterol 6.7 Gm Inhaler) 0 gm INH Q4HR PRN PRN Reason: Shortness of Breath Last Admin: 09/04/21 09:20 Dose: 2 puff Documented by: Benzonatate (Benzonatate 100 Mg Cap) 100 mg PO Q6H PRN PRN Reason: Cough Last Admin: 09/04/21 22:03 Dose: 100 mg Documented by: Calcium Carbonate/Glycine (Calcium Carbonate 500 Mg Tab.Chew) 500 mg PO Q2H PRN PRN Reason: GERD Dexamethasone (Dexamethasone 6 Mg Tablet) 6 mg PO DAILY [facility] Stop: 09/08/21 09:01 Last Admin: 09/05/21 08:56 Dose: 6 mg Documented by: Docusate Sodium (Docusate Sodium 100 Mg Cap) 100 mg PO DAILY PRN PRN Reason: Constipation Last Admin: 09/05/21 08:56 Dose: 100 mg Documented by: Famotidine (Famotidine 20 Mg Tab) 20 mg PO DAILY [facility] Last Admin: 09/05/21 08:57 Dose: 20 mg Documented by: Sodium Chloride (Normal Saline) 500 mls @ 999 mls/hr IV .BOLUS [facility] Last Admin: 09/01/21 10:25 Dose: 999 mls/hr Documented by: Piperacillin Sod/Tazobactam (Sod 4.5 gm/ Sodium Chloride) 100 mls @ 200 mls/hr IV Q6HR [facility] Last Admin: 09/06/21 05:14 Dose: 200 mls/hr Documented by: Loperamide HCl (Loperamide 2 Mg Cap) 2 mg PO ASDIRECTED PRN PRN Reason: Diarrhea Lorazepam (Lorazepam 0.5 Mg Tab) 0.5 mg PO Q12H PRN PRN Reason: Anxiety Last Admin: 09/05/21 08:59 Dose: 0.5 mg Documented by: Lorazepam (Lorazepam 2 Mg/Ml Sdv) 0.5 mg IVPUSH Q6H PRN PRN Reason: Dyspnea Last Admin: 09/06/21 05:16 Dose: 0.5 mg Documented by: Melatonin (Melatonin 3 Mg Tab) 6 mg PO BEDTIME PRN PRN Reason: Sleep Last Admin: 09/06/21 03:40 Dose: 6 mg Documented by: Metoprolol Tartrate (Metoprolol Tartrate 25 Mg Tab) 75 mg PO Q12H [facility] Last Admin: 09/05/21 21:18 Dose: 75 mg Documented by: Mometasone Furoate/Formoterol Fumar (Formoterol/Mometasone 200-5 Mcg 8.8 Gm Inhaler) 2 puff IH BID [facility] Last Admin: 09/05/21 21:23 Dose: Not Given Documented by: Ondansetron HCl (Ondansetron 4 Mg/2 Ml Sdv) 4 mg IVPUSH Q6H PRN PRN Reason: Nausea/Vomiting Last Admin: 09/03/21 05:01 Dose: 4 mg Documented by: Polyethylene Glycol (Polyethylene Glycol 3350 Powder 17 Gm Packet) 17 gm PO DAILY PRN PRN Reason: Constipation Sodium Chloride (Sodium Chloride 0.9% 10 Ml Syringe) 10 ml FLUSH ASDIRECTED PRN PRN Reason: Keep Vein Open Warfarin Sodium (Pharmacy To Dose - Warfarin) 0 dose .XX ASDIRECTED LAURYN Discontinued Medications Acetaminophen (Acetaminophen 325 Mg Tab) 975 mg PO NOW ONE Stop: 08/30/21 10:50 Last Admin: 08/30/21 11:44 Dose: Not Given Documented by: Acetaminophen (Acetaminophen 500 Mg Tab) 1,000 mg PO ONETIME ONE Stop: 08/30/21 13:40 Last Admin: 08/30/21 13:47 Dose: 1,000 mg Documented by: Diltiazem HCl (Diltiazem 25 Mg/5 Ml Sdv) 20 mg IVPUSH ONETIME ONE Stop: 08/30/21 22:40 Last Admin: 08/30/21 23:18 Dose: 20 mg Documented by: Furosemide (Furosemide 40 Mg/4 Ml Vial) 40 mg IVPUSH ONETIME ONE Stop: 09/05/21 12:30 Last Admin: 09/05/21 13:30 Dose: 40 mg Documented by: Guaifenesin/Dextromethorphan (Guaifenesin/Dextromethorphan 100-10 Mg/5 Ml Soln 5 Ml Cup) 10 ml PO Q6H PRN PRN Reason: Cough Last Admin: 09/03/21 21:29 Dose: 10 ml Documented by: Sodium Chloride (Normal Saline) 1,000 mls @ 999 mls/hr IV .BOLUS ONE Stop: 08/30/21 12:25 Last Admin: 08/30/21 11:33 Dose: 999 mls/hr Documented by: Lactated Ringer's (Ringers, Lactated) 1,000 mls @ 125 mls/hr IV ASDIRECTED LAURYN Stop: 08/30/21 21:14 Last Infusion: 08/30/21 21:58 Dose: Infused Documented by: Magnesium Sulfate 2 gm/ Premix 50 mls @ 25 mls/hr IV ONETIME ONE Stop: 08/30/21 21:41 Last Admin: 08/30/21 20:20 Dose: 25 mls/hr Documented by: Remdesivir 200 mg/ Sodium (Chloride) 250 mls @ 250 mls/hr IV ONETIME ONE Stop: 08/30/21 21:00 Last Infusion: 08/30/21 21:57 Dose: Infused Documented by: Remdesivir 100 mg/ Sodium (Chloride) 100 mls @ 100 mls/hr IV Q24H LAURYN Stop: 09/03/21 09:59 Last Admin: 09/03/21 09:42 Dose: 100 mls/hr Documented by: Lactated Ringer's (Ringers, Lactated) 1,000 mls @ 75 mls/hr IV ASDIRECTED [facility] Last Admin: 08/31/21 00:41 Dose: 75 mls/hr Documented by: Lactated Ringer's (Ringers, Lactated) 1,000 mls @ 100 mls/hr IV ASDIRECTED [facility] Last Admin: 08/30/21 22:00 Dose: 100 mls/hr Documented by: Diltiazem HCl 125 mg/ Sodium (Chloride) 125 mls @ 5 mls/hr IV TITRATE [facility]; Protocol Last Admin: 08/30/21 23:18 Dose: 5 mg/hr, 5 mls/hr Documented by: Lactated Ringer's (Ringers, Lactated) 500 mls @ 999 mls/hr IV .BOLUS ONE Stop: 08/31/21 00:15 Last Infusion: 08/31/21 00:37 Dose: Infused Documented by: Lisinopril (Lisinopril 20 Mg Tab) 40 mg PO DAILY [facility] Lorazepam (Lorazepam 2 Mg/Ml Sdv) 0.5 mg IVPUSH ONETIME ONE Stop: 09/05/21 17:52 Last Admin: 09/05/21 18:03 Dose: 0.5 mg Documented by: Metoprolol Tartrate (Metoprolol Tartrate 25 Mg Tab) 25 mg PO Q12H [facility] Last Admin: 08/30/21 19:35 Dose: 25 mg Documented by: Metoprolol Tartrate (Metoprolol Tartrate 5 Mg/5 Ml Sdv) 5 mg IVPUSH ONETIME ONE Stop: 08/30/21 19:44 Last Admin: 08/30/21 20:03 Dose: 5 mg Documented by: Metoprolol Tartrate (Metoprolol Tartrate 5 Mg/5 Ml Sdv) 5 mg IVPUSH ONETIME ONE Stop: 08/30/21 21:48 Last Admin: 08/30/21 22:09 Dose: 5 mg Documented by: Metoprolol Tartrate (Metoprolol Tartrate 25 Mg Tab) 50 mg PO Q12H [facility] Last Admin: 09/02/21 09:55 Dose: 50 mg Documented by: Metoprolol Tartrate (Metoprolol Tartrate 25 Mg Tab) 50 mg PO 0900,2100 [facility] Last Admin: 09/05/21 08:56 Dose: 50 mg Documented by: Ondansetron HCl (Ondansetron 4 Mg/2 Ml Sdv) 4 mg IV ONETIME ONE Stop: 08/30/21 10:50 Last Admin: 08/30/21 11:33 Dose: 4 mg Documented by: Potassium Chloride (Potassium Chloride 10 Meq Tab.Er) 40 meq PO ONETIME ONE Stop: 08/30/21 19:44 Last Admin: 08/30/21 20:21 Dose: 40 meq Documented by: Sodium Chloride (Sodium Chloride 0.9% 10 Ml Syringe) 10 ml FLUSH ASDIRECTED PRN PRN Reason: Keep Vein Open Last Admin: 09/04/21 22:14 Dose: 10 ml Documented by: Warfarin Sodium (Warfarin 2 Mg Tab) 8 mg PO ONETIME ONE Stop: 08/31/21 14:01 Last Admin: 08/31/21 17:13 Dose: 8 mg Documented by: Warfarin Sodium (Warfarin 5 Mg Tab) 5 mg PO ONETIME ONE Stop: 09/01/21 14:01 Last Admin: 09/01/21 13:00 Dose: 5 mg Documented by: Warfarin Sodium (Warfarin 1 Mg Tab) 3 mg PO ONETIME ONE Stop: 09/02/21 14:01 Last Admin: 09/02/21 15:01 Dose: 3 mg Documented by: Warfarin Sodium (Warfarin 1 Mg Tab) 1 mg PO ONETIME ONE Stop: 09/03/21 14:01 Last Admin: 09/03/21 14:30 Dose: 1 mg Documented by: Warfarin Sodium (Warfarin 1 Mg Tab) 3 mg PO ONETIME ONE Stop: 09/05/21 14:01 Last Admin: 09/05/21 13:36 Dose: 3 mg Documented by: - Exam Quality Assessment: Supplemental Oxygen (On CPAP) Urinary Catheter Total Time: 0Days 1Hours General: Alert, Oriented HEENT: Pupils Equal, Pupils Reactive Neck: Supple Lungs: Decreased Breath Sounds, Crackles, Wheezing Cardiovascular: Irregular Rhythm, Tachycardia GI/Abdominal Exam: Normal Bowel Sounds, Soft Back Exam: Normal Inspection Extremities: Normal Inspection Peripheral Pulses: 2+: Radial (L), Radial (R) Skin: Warm, Dry Neurological: No New Focal Deficit Psy/Mental Status: Alert - Patient Data Lab Results Last 24 hrs: Laboratory Results - last 24 hr 09/05/21 09/05/21 Range/Units 06:20 17:35 PT 23.0 H (9.0-12.0) SEC INR 2.3 H (0.9-1.2) ABG pH 7.53 H (7.35-7.45) ABG pCO2 35 (35-45) mmHg ABG pO2 50 L (70-100) mmHg ABG HCO3 29.0 H (22-26) mmol/L ABG O2 Saturation 89 L (95-100) % ABG Base Excess 7 H ((-2)-(+3)) mmol/L Claudio Test Positive O2 Delivery Device Hi flow nasal cannu Result Diagrams: 09/06/21 06:15 09/06/21 06:15 Sepsis Event Note - Evaluation Sepsis Screening Result: Possible Sepsis Risk - Focused Exam Vital Signs: Vital Signs Temp Pulse Pulse Resp BP BP Pulse Ox 09/06/21 03:18 97 F 85 33 H 119/68 91 L 09/05/21 23:39 98.2 F 69 31 H 129/86 89 L 09/05/21 21:18 125 H 119/74 09/05/21 20:00 99.4 F 114 H 24 H 119/74 94 L - Problem List & Annotations (1) Acute respiratory failure with hypoxia SNOMED Code(s): 25432599, 587978025 Code(s): J96.01 - ACUTE RESPIRATORY FAILURE WITH HYPOXIA Status: Acute Current Visit: Yes (2) Pneumonia due to COVID-19 virus SNOMED Code(s): 515702666686284061 Code(s): U07.1 - COVID-19; J12.82 - PNEUMONIA DUE TO CORONAVIRUS DISEASE 2018 Status: Acute Current Visit: Yes (3) Atrial fibrillation SNOMED Code(s): 20626240 Code(s): I48.91 - UNSPECIFIED ATRIAL FIBRILLATION Status: Acute Current Visit: Yes (4) Atrial fibrillation with RVR SNOMED Code(s): 798091379209318 Code(s): I48.91 - UNSPECIFIED ATRIAL FIBRILLATION Status: Acute Current Visit: Yes (5) ARDS (adult respiratory distress syndrome) SNOMED Code(s): 85240793, 05527900 Code(s): J80 - ACUTE RESPIRATORY DISTRESS SYNDROME Status: Acute Current Visit: Yes - Problem List Review Problem List Initiated/Reviewed/Updated: Yes - My Orders Last 24 Hours: My Active Orders 09/05/21 09:22 Sodium Chloride 0.9% [Saline Flush] 10 ml FLUSH ASDIRECTED PRN 09/05/21 10:00 Metoprolol Tartrate [Lopressor] 75 mg PO Q12H 09/05/21 13:00 Piperacillin/Tazobactam [Zosyn] 4.5 gm Sodium Chloride 0.9% [Normal Saline AdvBag] 100 ml IV Q6HR 09/05/21 19:04 Urinary Catheter Assessment [RC] ASDIRECTED 09/05/21 19:15 Insert [place] Catheter [Insert Urinary Catheter] [OM.PC] Q24H 09/05/21 21:00 LORazepam [Ativan] 0.5 mg IVPUSH Q6H PRN 09/06/21 05:10 PROCALCITONIN [REF] DAILY 09/06/21 05:11 CBC WITH AUTO DIFF [HEME] AM 09/06/21 06:00 C-REACTIVE PROTEIN [CHEM] Routine CMP [COMPREHENSIVE METABOLIC PN,CMP] [CHEM] Routine 09/06/21 Breakfast NPO Now [Nothing per Oral Now Diet] [DIET] - Plan Plan:: # ACUTE CONDITIONS: Acute COVID 19 viral pneumonia Acute hypoxic respiratory failure 2/2 to above Acute gastroenteritis secondary to above Hypovolemic hyponatremia 2/2 above - Required HFNC 09/03/21 - Worsening oxygen saturations requiring CPAP with 100% FIO2 09/05/21 - Currently requiring oxygen via CPAP at 100 FiO2- maintains full CODE STATUS - prolonged discussion that patient's chance of survival is low - - ABG 09/05/21 was obtained which showed pH 7.53, PCO2 35, PaO2 50, bicarb 29. PA FiO2 ratio is 50 consistent with severe ARDS - Chest x-ray from 09/05/21 showed worsening bilateral interstitial infiltrates. - Patient on broad-spectrum antibiotics 09/05/21, utilized IV Lasix 09/05/21 - Start date 08/31/21 - Remdesivir (completed) per protocol, dexamethasone per protocol, lab monitoring per protocol - continue warfarin Rx to dose with INR goal 2-3 given hx of DVT/PE and current COVID 19 - As needed 1 mg Ativan every 6 hours for anxiety or dyspnea - Blood cultures negative # Hypokalemia 2/2 above - Resolved, diarrhea significantly improved with PRN imodium # Atrial fibrillation with rvr - New onset - likely secondary to above and obesity/likely ALYSSA - Discussed possibility of PE but patient already on warfarin with therapeutic INR - CTA unlikely to change current management - Metoprolol increased to 75 mg PO BID - off diltiazem drip 09/01/21 - will ellis sition to IV metoprolol given NPO status 2/2 respiratory status - Addendum - patient converted to sinus AM 09/06/21 - Recommend TTE as outpatient # CHRONIC CONDITIONS: - Morbid obesity: BMI 45.7 on admit - Chronic asthma: continue home inhalers - Essential HTN: hold lisinopril 40mg once daily given hypotension - Chronic pain, diffuse: continue acetaminophen at home dose - Hx of DVT/PE: warfarin Rx to dose with goal INR 2-3 - GERD without esophagitis: continue home H2 and tums - will hold while NPO - could consider IV H2 Fluids: none Electrolytes: wnl Diet: NPO 2/2 respiratory status Code status: Full Code DVT prophylaxis: warfarin Dispo: Further care for acute hypoxic respiratory failure - patient may require intubation given severe respiratory status
[2021-09-06] MEDS ORDERED: Metoprolol Tartrate 5 MG/5 ML SDV IVPUSH ONE (06:33)
[2021-09-06 07:24] LABS: ANION GAP 13.5 mEq/L (7-13)
[2021-09-06] MEDS: Famotidine 20 MG Tab PO SCH (09:34)
[2021-09-06] MEDS: Formoterol/Mometasone 200-5 MCG 8.8 GM Inhaler IH SCH (09:34)
[2021-09-06] MEDS ORDERED: LORazepam 2 MG/ML SDV IVPUSH PRN ×3 (09:36→16:00)
[2021-09-06] MEDS ORDERED: Dexamethasone 4 MG/ML SDV IVPUSH SCH (10:00)
[2021-09-06] MEDS: Metoprolol Tartrate 5 MG/5 ML SDV IVPUSH SCH ×2 (11:03→17:55)
[2021-09-06] MEDS ORDERED: Furosemide 40 MG/4 ML VIAL IVPUSH ONE (12:07)
[2021-09-06] MEDS: Dexamethasone 6 MG TABLET PO SCH (13:05)
[2021-09-06 13:08] VITALS: BP 142/84; PULSE 81
--- NOTE | 2021-09-06 13:25 | PCM.SN.2 ---
- Free Text/Narrative Note: Patient continued to have decreased oxygen saturations and had continued events with oxygen saturation in the low 80s on 100% FiO2 CPAP with a PEEP of 10. Despite adjustments with noninvasive ventilation patient had slow response and continues to maintain in the mid 80s. Had a prolonged discussion with patient about options including continuing with the current treatment versus intubation. Patient wishes to proceed with intubation. We will utilize ARDS protocol for the ventilator with 6 mL/kg predicted body weight for tidal volume. We will aim for a plateau pressure less than 30. Will order repeat ABG, CXR post intubation. Will obtain family members.
[2021-09-06] MEDS ORDERED: Norepinephrine 4 MG in Dextrose 5% in Water 246 ML IV SCH ×2 (13:30)
[2021-09-06] MEDS ORDERED: Midazolam 50 MG in Sodium Chloride 0.9% 40 ML IV SCH (13:45)
[2021-09-06] MEDS: Sodium Chloride 0.9% 1,000 ML IV SCH ×2 (13:52→19:48)
[2021-09-06] MEDS: propofoL 100 ML IV SCH ×2 (14:09→15:45)
[2021-09-06] MEDS ORDERED: Cisatracurium 200 MG in Sodium Chloride 0.9% 500 ML IV SCH (14:45)
[2021-09-06] MEDS ORDERED: CISATRACURIUM IV SCH ×2 (14:48→15:00)
[2021-09-06] MEDS ORDERED: SODIUM CHLORIDE 0.9% IV SCH ×2 (14:48→15:00)
--- NOTE | 2021-09-06 15:04 | PCM.SN.2 ---
- Free Text/Narrative Note: Emergent Intubation. Called in per MD to intubate Covid Pt who was tiring on non invasive respiratory support. Explained to Pt the plan to sedate and intubate pt in order to assist ventilation. Pt states understanding and agrees. Pt sedated with 2 mg of versed, 100 mcg fentanyl, 5 mg of Rocuronium, 12 mg of etomidate. pt ventilated per non invasive vent for 60 seconds. 90 mg of Anectine given. Pt intubated with glidescope using a #3 blade. 7.0 ETT to 21 cm at lip. Pos fogging, BBS, ETCO2 change. Tube secured at 22 cm at lip. OG tube placed with positive auscultation. Propofol gtt started at 75 mcg/kg/min. 50 mg of rocuronium given. PCXR ordered. Procedure time 1345 to 1445
[2021-09-06] MEDS ORDERED: fentaNYL 500 MCG in Sodium Chloride 0.9% 50 ML IV SCH (15:15)
[2021-09-06] MEDS ORDERED: fentaNYL Citrate/PF 1,500 MCG/30 ML PCA Vial IV SCH (15:30)
[2021-09-06] MEDS ORDERED: Glycopyrrolate 0.2 MG/ML 2 ML SDV IVPUSH ONE (15:44)
[2021-09-06] MEDS ORDERED: Acetaminophen 325 MG Tab PO PRN (15:45)
[2021-09-06] MEDS ORDERED: Menthol/Methyl Salicylate 85 GM Tube TOP PRN (15:45)
--- NOTE | 2021-09-06 16:27 | PCM.DCSUM1 ---
Discharge Summary - Hospital Course Free Text/Narrative:: Betty is a 51-year-old woman with a past medical history significant for peripheral DVTs, pulmonary emboli, morbid obesity with a BMI of 51, essential hypertension, chronic asthma who presented to the emergency department on 08/30/2021 with complaints of acute onset weakness and mild nausea. Of note, she is unvaccinated against COVID-19. While in the emergency department her sodium was found to be low and she had borderline low potassium. She had been co mplaining of having diarrhea up to 10 times daily. This is been going on for 1- 2 days. She tried to drink fluids at home but was noting minimal appetite and worsening symptoms. She then presented to the emergency department for evaluation. While in the ED she was found to be Covid positive. She was not requiring any oxygen. She was admitted to the hospital for further evaluation of treatment of COVID-19. On the floor T-max 103.9. Patient became hypoxic on 08-31-21 and was requiring oxygen via nasal cannula. She was started on remdesivir and completed that protocol, dexamethasone per pr otocol and laboratory monitoring per protocol. Patient's oxygenation continued to worsen she required increasing oxygen via nasal cannula and then required high flow nasal cannula . Patient also had atrial fibrillation with RVR which responded well to diltiazem drip and p.o. metoprolol and she converted to normal sinus rhythm. Chest x-ray showed worsening bilateral infiltrates concerning for worsening COVID-19 pneumonia. Patient again had worsening oxygen saturations on high flow nasal cannula despite treatment for COVID-19 pneumonia and was started on CPAP with 100% FiO2 on 09-05-21. Attempt was made to transfer patient to higher level facility however they were 0 available ICU beds within a several state area. Patient was also started on broad-spectrum antibiotics, and multiple doses of IV Lasix were utilized. Patient had ABG on 09-05-21 which showed a PA FiO2 ratio of 50 consistent with severe ARDS. Multiple discussions was had with patient throughout her hospital stay and patient maintained full CODE STATUS. On 09-06-21 patient had worsening oxygen saturations despite CPAP 100% FiO2 and required intubation. Despite intubation we are unable to maintain oxygen saturations despite propofol, paralytics and increasing PEEP/FiO2. Patient became hypotensive and was requiring norepinephrine to maintain her blood pressure. Chest x-ray obtained showed pneumomediastinum. Discussion was had with patient's daughter and decision was made at that time to pursue comfort focused cares. As needed medications were added, patient was extubated and shortly thereafter on 09-06-21 at 1620. Daughter and sister were at bedside. - Discharge Data Discharge Date: 09/06/21 Discharge Disposition: 20 Preliminary Cause of *Q: Other_Special Instruction (COVID 19 pneumonia) Condition: Good - Referral to Home Health Primary Care Physician: PCP None - Discharge Diagnosis/Problem(s) (1) Acute respiratory failure with hypoxia SNOMED Code(s): 95969859, 292475034 ICD Code: J96.01 - ACUTE RESPIRATORY FAILURE WITH HYPOXIA Status: Acute Current Visit: Yes (2) Pneumonia due to COVID-19 virus SNOMED Code(s): 993024135185360103 ICD Code: U07.1 - COVID-19; J12.82 - PNEUMONIA DUE TO CORONAVIRUS 2018 Status: Acute Current Visit: Yes (3) Atrial fibrillation SNOMED Code(s): 32882787 ICD Code: I48.91 - UNSPECIFIED ATRIAL FIBRILLATION Status: Acute Current Visit: Yes (4) Atrial fibrillation with RVR SNOMED Code(s): 115269949989060 ICD Code: I48.91 - UNSPECIFIED ATRIAL FIBRILLATION Status: Acute Current Visit: Yes (5) ARDS (adult respiratory distress syndrome) SNOMED Code(s): 13542908, 05265658 ICD Code: J80 - ACUTE RESPIRATORY DISTRESS SYNDROME Status: Acute Current Visit: Yes - Discharge Plan *PRESCRIPTION DRUG MONITORING PROGRAM REVIEWED*: Not Applicable *COPY OF PRESCRIPTION DRUG MONITORING REPORT IN PATIENT KENNA: Not Applicable Home Medications: Home Meds Famotidine [Pepcid AC] 20 mg PO DAILY 04/18/15 [History] Lisinopril 40 mg PO DAILY 04/18/15 [History] Warfarin Sodium 5 mg PO .THURSFRISATSUN 04/18/15 [History] Acetaminophen 500 mg PO Q4HR PRN 08/30/21 [History] Albuterol Sulfate [Albuterol Sulfate Hfa] 2 puff INH Q4HR PRN 08/30/21 [History] Budesonide/Formoterol [Symbicort 160-4.5 MCG] 2 puff IH BID 08/30/21 [History] Cyanocobalamin (Vitamin B-12) [Vitamin B-12] 1,000 mcg PO DAILY 08/30/21 [History] Patient's Own Medication [Ptom] 1 tab PO DAILY 08/30/21 [History] Warfarin [Coumadin] 7.5 mg PO .MONTUEWED 08/30/21 [History] Forms: ED Department Discharge Referrals: PCP,None [Primary Care Provider] - - Discharge Summary/Plan Comment DC Time >30 min.: Yes Total # of Minutes for Discharge Time: 30 minutes - Patient Data Vitals - Most Recent: Last Vital Signs Temp 98.4 F 09/06/21 12:00 Pulse 81 09/06/21 12:00 Resp 28 H 09/06/21 12:00 BP 142/84 H 09/06/21 12:00 Pulse Ox 85 L 09/06/21 13:00 Weight - Most Recent: 305 lb I&O - Last 24 hours: Intake & Output 09/06/21 09/06/21 09/06/21 06:59 14:59 22:59 Intake Total 15 Output Total 500 Balance -485 Lab Results - Last 24 hrs: Laboratory Results - last 24 hr 09/05/21 09/06/21 09/06/21 Range/Units 17:35 06:15 06:15 WBC (5.0-10.0) 10^3/uL RBC (4.2-5.4) 10^6/uL Hgb (12.0-16.0) g/dL Hct (37.0-47.0) % MCV (80-100) fL MCH (27.0-34.0) pg MCHC (33.0-35.0) g/dL Plt Count (150-450) 10^3/uL Neut % (Auto) (42.2-75.2) % Lymph % (Auto) (20.5-50.1) % [place] % (Auto) (2-8) % Eos % (Auto) (1.0-3.0) % Baso % (Auto) (0.0-1.0) % Add Manual Diff Neutrophils % (Manual) (42-75) % Band Neutrophils % % Lymphocytes % (Manual) (20-50) % Monocytes % (Manual) (2-8) % Metamyelocytes % PT 23.1 H (9.0-12.0) SEC INR 2.3 H (0.9-1.2) ABG pH 7.53 H (7.35-7.45) ABG pCO2 35 (35-45) mmHg ABG pO2 50 L (70-100) mmHg ABG HCO3 29.0 H (22-26) mmol/L ABG O2 Saturation 89 L (95-100) % ABG Base Excess 7 H ((-2)-(+3)) mmol/L Claudio Test Positive O2 Delivery Device Hi flow nasal cannu Sodium 141 (136-145) mmol/L Potassium 4.5 (3.5-5.1) mmol/L Chloride 100 (98-107) mmol/L Carbon Dioxide 32 (21-32) mmol/L Anion Gap 13.5 H (7-13) mEq/L BUN 20 H (7-18) mg/dL Creatinine 1.01 (0.55-1.02) mg/dL Est Cr Clr Drug Dosing 64.98 mL/min Estimated GFR (MDRD) 57 BUN/Creatinine Ratio 19.8 (No establ ref range) Glucose 93 (70-99) mg/dL Calcium 8.4 L (8.5-10.1) mg/dL Total Bilirubin 0.9 (0.2-1.0) mg/dL AST 55 H (15-37) U/L ALT 94 H (14-59) U/L Alkaline Phosphatase 80 (46-116) U/L C-Reactive Protein 3.4 H (0.0-0.9) mg/dL Total Protein 6.0 L (6.4-8.2) g/dL Albumin 2.3 L (3.4-5.0) g/dL Globulin 3.7 Albumin/Globulin Ratio 0.62 // Range/Units 06:15 WBC 11.9 H (5.0-10.0) 10^3/uL RBC 4.90 (4.2-5.4) 10^6/uL Hgb 14.5 (12.0-16.0) g/dL Hct 43.9 (37.0-47.0) % MCV 89.6 (80-100) fL MCH 29.6 (27.0-34.0) pg MCHC 33.0 (33.0-35.0) g/dL Plt Count 214 (150-450) 10^3/uL Neut % (Auto) 87.6 H (42.2-75.2) % Lymph % (Auto) 7.7 L (20.5-50.1) % [place] % (Auto) 4.5 (2-8) % Eos % (Auto) 0.1 L (1.0-3.0) % Baso % (Auto) 0.1 (0.0-1.0) % Add Manual Diff Yes Neutrophils % (Manual) 91 H (42-75) % Band Neutrophils % 2 % Lymphocytes % (Manual) 3 L (20-50) % Monocytes % (Manual) 1 L (2-8) % Metamyelocytes % 3 PT (9.0-12.0) SEC INR (0.9-1.2) ABG pH (7.35-7.45) ABG pCO2 (35-45) mmHg ABG pO2 (70-100) mmHg ABG HCO3 (22-26) mmol/L ABG O2 Saturation (95-100) % ABG Base Excess ((-2)-(+3)) mmol/L Claudio Test O2 Delivery Device Sodium (136-145) mmol/L Potassium (3.5-5.1) mmol/L Chloride (98-107) mmol/L Carbon Dioxide (21-32) mmol/L Anion Gap (7-13) mEq/L BUN (7-18) mg/dL Creatinine (0.55-1.02) mg/dL Est Cr Clr Drug Dosing mL/min Estimated GFR (MDRD) BUN/Creatinine Ratio (No establ ref range) Glucose (70-99) mg/dL Calcium (8.5-10.1) mg/dL Total Bilirubin (0.2-1.0) mg/dL AST (15-37) U/L ALT (14-59) U/L Alkaline Phosphatase (46-116) U/L C-Reactive Protein (0.0-0.9) mg/dL Total Protein (6.4-8.2) g/dL Albumin (3.4-5.0) g/dL Globulin Albumin/Globulin Ratio Med Orders - Current: Current Medications Acetaminophen (Acetaminophen 325 Mg Tab) 650 mg PO Q4H PRN PRN Reason: Pain (moderate 4-6) Albuterol (Albuterol 6.7 Gm Inhaler) 0 gm INH Q4HR PRN PRN Reason: Shortness of Breath Last Admin: 09/04/21 09:20 Dose: 2 puff Documented by: Benzonatate (Benzonatate 100 Mg Cap) 100 mg PO Q6H PRN PRN Reason: Cough Last Admin: 09/04/21 22:03 Dose: 100 mg Documented by: Calcium Carbonate/Glycine (Calcium Carbonate 500 Mg Tab.Chew) 500 mg PO Q2H PRN PRN Reason: GERD Dexamethasone (Dexamethasone 4 Mg/Ml Sdv) 6 mg IVPUSH DAILY [facility] Last Admin: 09/06/21 10:24 Dose: 6 mg Documented by: Docusate Sodium (Docusate Sodium 100 Mg Cap) 100 mg PO DAILY PRN PRN Reason: Constipation Last Admin: 09/05/21 08:56 Dose: 100 mg Documented by: Famotidine (Famotidine 20 Mg Tab) 20 mg PO DAILY [facility] Last Admin: 09/06/21 09:34 Dose: Not Given Documented by: Fentanyl Citrate (Fentanyl Citrate/Pf 1,500 Mcg/30 Ml [employer] Vial) 0 mcg IV ASDIRECTED LAURYN; Protocol Last Admin: 09/06/21 15:31 Dose: 50 mcg Documented by: Sodium Chloride (Normal Saline) 500 mls @ 999 mls/hr IV .BOLUS [facility] Last Admin: 09/01/21 10:25 Dose: 999 mls/hr Documented by: Piperacillin Sod/Tazobactam (Sod 4.5 gm/ Sodium Chloride) 100 mls @ 200 mls/hr IV Q6HR [facility] Last Admin: 09/06/21 12:59 Dose: 200 mls/hr Documented by: Propofol (Diprivan 100 Ml) 100 mls @ 24.902 mls/hr IV .TITRATE LAURYN; Protocol Norepinephrine Bitartrate 4 mg (/ Dextrose/Water) 250 mls @ 7.5 mls/hr IV TITRATE [facility]UR[facility]; Protocol Midazolam HCl 50 mg/ Sodium (Chloride) 50 mls @ 0.5 mls/hr IV ASDIRECTED LAURYN; Protocol Cisatracurium Besylate 200 mg/ (Sodium Chloride) 500 mls @ 62.256 mls/hr IV Q4H [facility] Loperamide HCl (Loperamide 2 Mg Cap) 2 mg PO ASDIRECTED PRN PRN Reason: Diarrhea Lorazepam (Lorazepam 2 Mg/Ml Sdv) 0.5 mg IVPUSH Q6H PRN PRN Reason: Anxiety or Dyspnea Lorazepam (Lorazepam 2 Mg/Ml Sdv) 2 mg IVPUSH Q1H PRN PRN Reason: end of life Melatonin (Melatonin 3 Mg Tab) 6 mg PO BEDTIME PRN PRN Reason: Sleep Last Admin: 09/06/21 03:40 Dose: 6 mg Documented by: Metoprolol Tartrate (Metoprolol Tartrate 5 Mg/5 Ml Sdv) 10 mg IVPUSH Q6H [facility] Last Admin: 09/06/21 11:03 Dose: Not Given Documented by: Mometasone Furoate/Formoterol Fumar (Formoterol/Mometasone 200-5 Mcg 8.8 Gm Inhaler) 2 puff IH BID [facility] Last Admin: 09/06/21 09:34 Dose: Not Given Documented by: Ondansetron HCl (Ondansetron 4 Mg/2 Ml Sdv) 4 mg IVPUSH Q6H PRN PRN Reason: Nausea/Vomiting Last Admin: 09/03/21 05:01 Dose: 4 mg Documented by: Polyethylene Glycol (Polyethylene Glycol 3350 Powder 17 Gm Packet) 17 gm PO DAILY PRN PRN Reason: Constipation Sodium Chloride (Sodium Chloride 0.9% 10 Ml Syringe) 10 ml FLUSH ASDIRECTED PRN PRN Reason: Keep Vein Open Last Admin: 09/06/21 10:28 Dose: 10 ml Documented by: Discontinued Medications Acetaminophen (Acetaminophen 325 Mg Tab) 975 mg PO NOW ONE Stop: 08/30/21 10:50 Last Admin: 08/30/21 11:44 Dose: Not Given Documented by: Acetaminophen (Acetaminophen 500 Mg Tab) 1,000 mg PO ONETIME ONE Stop: 08/30/21 13:40 Last Admin: 08/30/21 13:47 Dose: 1,000 mg Documented by: Acetaminophen (Acetaminophen 325 Mg Tab) 650 mg PO Q4H PRN PRN Reason: Fever Last Admin: 09/02/21 01:01 Dose: 650 mg Documented by: Dexamethasone (Dexamethasone 6 Mg Tablet) 6 mg PO DAILY [facility] Stop: 09/08/21 09:01 Last Admin: 09/06/21 13:05 Dose: Not Given Documented by: Diltiazem HCl (Diltiazem 25 Mg/5 Ml Sdv) 20 mg IVPUSH ONETIME ONE Stop: 08/30/21 22:40 Last Admin: 08/30/21 23:18 Dose: 20 mg Documented by: Furosemide (Furosemide 40 Mg/4 Ml Vial) 40 mg IVPUSH ONETIME ONE Stop: 09/05/21 12:30 Last Admin: 09/05/21 13:30 Dose: 40 mg Documented by: Furosemide (Furosemide 40 Mg/4 Ml Vial) 40 mg IVPUSH ONETIME ONE Stop: 09/06/21 12:08 Last Admin: 09/06/21 12:56 Dose: 40 mg Documented by: Glycopyrrolate (Glycopyrrolate 0.2 Mg/Ml 2 Ml Sdv) 0.4 mg IVPUSH ONETIME ONE Stop: 09/06/21 15:45 Guaifenesin/Dextromethorphan (Guaifenesin/Dextromethorphan 100-10 Mg/5 Ml Soln 5 Ml Cup) 10 ml PO Q6H PRN PRN Reason: Cough Last Admin: 09/03/21 21:29 Dose: 10 ml Documented by: Sodium Chloride (Normal Saline) 1,000 mls @ 999 mls/hr IV .BOLUS ONE Stop: 08/30/21 12:25 Last Admin: 08/30/21 11:33 Dose: 999 mls/hr Documented by: Lactated Ringer's (Ringers, Lactated) 1,000 mls @ 125 mls/hr IV ASDIRECTED [facility] Stop: 08/30/21 21:14 Last Infusion: 08/30/21 21:58 Dose: Infused Documented by: Magnesium Sulfate 2 gm/ Premix 50 mls @ 25 mls/hr IV ONETIME ONE Stop: 08/30/21 21:41 Last Admin: 08/30/21 20:20 Dose: 25 mls/hr Documented by: Remdesivir 200 mg/ Sodium (Chloride) 250 mls @ 250 mls/hr IV ONETIME ONE Stop: 08/30/21 21:00 Last Infusion: 08/30/21 21:57 Dose: Infused Documented by: Remdesivir 100 mg/ Sodium (Chloride) 100 mls @ 100 mls/hr IV Q24H [facility] Stop: 09/03/21 09:59 Last Admin: 09/03/21 09:42 Dose: 100 mls/hr Documented by: Lactated Ringer's (Ringers, Lactated) 1,000 mls @ 75 mls/hr IV ASDIRECTED [facility] Last Admin: 08/31/21 00:41 Dose: 75 mls/hr Documented by: Lactated Ringer's (Ringers, Lactated) 1,000 mls @ 100 mls/hr IV ASDIRECTED [facility] Last Admin: 08/30/21 22:00 Dose: 100 mls/hr Documented by: Diltiazem HCl 125 mg/ Sodium (Chloride) 125 mls @ 5 mls/hr IV TITRATE [facility]URYN; Protocol Last Admin: 08/30/21 23:18 Dose: 5 mg/hr, 5 mls/hr Documented by: Lactated Ringer's (Ringers, Lactated) 500 mls @ 999 mls/hr IV .BOLUS ONE Stop: 08/31/21 00:15 Last Infusion: 08/31/21 00:37 Dose: Infused Documented by: Cisatracurium Besylate 200 mg/ (Sodium Chloride) 520 mls @ 64.746 mls/hr IV Q4H [facility] Cisatracurium Besylate 200 mg/ (Sodium Chloride) 500 mls @ 62.256 mls/hr IV Q4H [facility] Lisinopril (Lisinopril 20 Mg Tab) 40 mg PO DAILY [facility] Lorazepam (Lorazepam 0.5 Mg Tab) 0.5 mg PO Q12H PRN PRN Reason: Anxiety Last Admin: 09/05/21 08:59 Dose: 0.5 mg Documented by: Lorazepam (Lorazepam 2 Mg/Ml Sdv) 0.5 mg IVPUSH ONETIME ONE Stop: 09/05/21 17:52 Last Admin: 09/05/21 18:03 Dose: 0.5 mg Documented by: Lorazepam (Lorazepam 2 Mg/Ml Sdv) 0.5 mg IVPUSH Q6H PRN PRN Reason: Dyspnea Last Admin: 09/06/21 05:16 Dose: 0.5 mg Documented by: Lorazepam (Lorazepam 2 Mg/Ml Sdv) 1 mg IVPUSH Q6H PRN PRN Reason: Anxiety Last Admin: 09/06/21 10:19 Dose: 1 mg Documented by: Metoprolol Tartrate (Metoprolol Tartrate 25 Mg Tab) 25 mg PO Q12H [facility] Last Admin: 08/30/21 19:35 Dose: 25 mg Documented by: Metoprolol Tartrate (Metoprolol Tartrate 5 Mg/5 Ml Sdv) 5 mg IVPUSH ONETIME ONE Stop: 08/30/21 19:44 Last Admin: 08/30/21 20:03 Dose: 5 mg Documented by: Metoprolol Tartrate (Metoprolol Tartrate 5 Mg/5 Ml Sdv) 5 mg IVPUSH ONETIME ONE Stop: 08/30/21 21:48 Last Admin: 08/30/21 22:09 Dose: 5 mg Documented by: Metoprolol Tartrate (Metoprolol Tartrate 25 Mg Tab) 50 mg PO Q12H [facility] Last Admin: 09/02/21 09:55 Dose: 50 mg Documented by: Metoprolol Tartrate (Metoprolol Tartrate 25 Mg Tab) 50 mg PO 0900,2100 [facility] Last Admin: 09/05/21 08:56 Dose: 50 mg Documented by: Metoprolol Tartrate (Metoprolol Tartrate 25 Mg Tab) 75 mg PO Q12H [facility] Last Admin: 09/05/21 21:18 Dose: 75 mg Documented by: Metoprolol Tartrate (Metoprolol Tartrate 5 Mg/5 Ml Sdv) 5 mg IVPUSH ONETIME ONE Stop: 09/06/21 06:34 Last Admin: 09/06/21 07:30 Dose: 5 mg Documented by: Ondansetron HCl (Ondansetron 4 Mg/2 Ml Sdv) 4 mg IV ONETIME ONE Stop: 08/30/21 10:50 Last Admin: 08/30/21 11:33 Dose: 4 mg Documented by: Potassium Chloride (Potassium Chloride 10 Meq Tab.Er) 40 meq PO ONETIME ONE Stop: 08/30/21 19:44 Last Admin: 08/30/21 20:21 Dose: 40 meq Documented by: Sodium Chloride (Sodium Chloride 0.9% 10 Ml Syringe) 10 ml FLUSH ASDIRECTED PRN PRN Reason: Keep Vein Open Last Admin: 09/04/21 22:14 Dose: 10 ml Documented by: Warfarin Sodium (Pharmacy To Dose - Warfarin) 0 dose .XX ASDIRECTED [facility]URYN Warfarin Sodium (Warfarin 2 Mg Tab) 8 mg PO ONETIME ONE Stop: 08/31/21 14:01 Last Admin: 08/31/21 17:13 Dose: 8 mg Documented by: Warfarin Sodium (Warfarin 5 Mg Tab) 5 mg PO ONETIME ONE Stop: 09/01/21 14:01 Last Admin: 09/01/21 13:00 Dose: 5 mg Documented by: Warfarin Sodium (Warfarin 1 Mg Tab) 3 mg PO ONETIME ONE Stop: 09/02/21 14:01 Last Admin: 09/02/21 15:01 Dose: 3 mg Documented by: Warfarin Sodium (Warfarin 1 Mg Tab) 1 mg PO ONETIME ONE Stop: 09/03/21 14:01 Last Admin: 09/03/21 14:30 Dose: 1 mg Documented by: Warfarin Sodium (Warfarin 1 Mg Tab) 3 mg PO ONETIME ONE Stop: 09/05/21 14:01 Last Admin: 09/05/21 13:36 Dose: 3 mg Documented by: Warfarin Sodium (Warfarin 1 Mg Tab) 3 mg PO ONETIME ONE Stop: 09/06/21 14:01 Last Admin: 09/06/21 13:05 Dose: Not Given Documented by:
--- NOTE | 2021-09-06 16:51 | CR ---
EXAMINATION: Chest 1V Frontal SEX: Female AGE: 51 years CLINICAL HISTORY: 51-year-old hospitalized obese unvaccinated female with worsening COVID pneumonia (post intubation). Patient on positive pressure ventilation in an attempt to correct declining, unacceptably poor, oxygenation. INTERPRETATION: Abnormal. 1. Pneumomediastinum. Note: Primary care provider (hospitalist) notified immediately. 2. Increased pneumonic consolidation most of the right lung since previous CXR 05 September 2021. 3. Persistent left lower lobe consolidation (relative sparing left upper lobe). 4. Emphysema in the neck without current signs of pneumothorax. 5. Endotracheal tube (tip level T2 dorsal spine) above john. NG tube. External library monitor leads. CONCLUSION:
[2021-09-06] MEDS ORDERED: Succinylcholine 200 MG/10 ML MDV IV ONE (16:57)
[2021-09-06] MEDS ORDERED: Etomidate 2 MG/ML 20 ML SDV IVPUSH ONE (16:57)
[2021-09-06] MEDS ORDERED: Rocuronium 100 MG/10 ML MDV IV ONE (16:57)
[2021-09-06] MEDS ORDERED: Midazolam 1 MG/ML 2 ML SDV IV ONE (16:57)
[2021-09-06] MEDS ORDERED: fentaNYL 100 MCG/2 ML SDV IV ONE (16:57)
== END 2021-09-06 17:50 | disposition expired | DRG 208 ==
LOC: DL.ED 10:40 → DL.MS 11:49 → UNDOADMIN 11:53 → DL.MS 11:53
PROVIDERS: ADMIT Hospitalist; ATTEND Internal Medicine
PROC: 8E0ZXY6 Isolation (ICD-10-PCS; principal; 2021-08-30)
PROC: XW033E5 Introduction of Remdesivir Anti-infective into Peripheral Vein, Percutaneous Approach, New Technology Group 5 (ICD-10-PCS; 2021-08-30)
PROC: 5A0945A Assistance with Respiratory Ventilation, 24-96 Consecutive Hours, High Flow/Velocity Cannula (ICD-10-PCS; 2021-09-04)
PROC: 5A1935Z Respiratory Ventilation, Less than 24 Consecutive Hours (ICD-10-PCS; 2021-09-06)
PROC: 3E0333Z Introduction of Anti-inflammatory into Peripheral Vein, Percutaneous Approach (ICD-10-PCS; 2021-09-06)
PROC: 0BH18EZ Insertion of Endotracheal Airway into Trachea, Via Natural or Artificial Opening Endoscopic (ICD-10-PCS; 2021-09-06)
PROC: 3E033XZ Introduction of Vasopressor into Peripheral Vein, Percutaneous Approach (ICD-10-PCS; 2021-09-06)
PROC: 5A09357 Assistance with Respiratory Ventilation, Less than 24 Consecutive Hours, Continuous Positive Airway Pressure (ICD-10-PCS; 2021-09-06)
DX: U07.1 COVID-19 (principal); J12.82 Pneumonia due to coronavirus disease 2019; J80 Acute respiratory distress syndrome; A41.89 Other specified sepsis; R65.20 Severe sepsis without septic shock; A08.39 Other viral enteritis; E87.1 Hypo-osmolality and hyponatremia; Z68.43 Body mass index [BMI] 50.0-59.9, adult; I48.91 Unspecified atrial fibrillation; E66.01 Morbid (severe) obesity due to excess calories; Z51.5 Encounter for palliative care; J98.2 Interstitial emphysema; H54.7 Unspecified visual loss; J45.909 Unspecified asthma, uncomplicated; K21.9 Gastro-esophageal reflux disease without esophagitis; E87.6 Hypokalemia; I10 Essential (primary) hypertension; G89.29 Other chronic pain; E86.1 Hypovolemia; E86.0 Dehydration; G47.33 Obstructive sleep apnea (adult) (pediatric); Z86.718 Personal history of other venous thrombosis and embolism; Z79.01 Long term (current) use of anticoagulants; Z86.711 Personal history of pulmonary embolism; Z91.09 Other allergy status, other than to drugs and biological substances; Z88.8 Allergy status to other drugs, medicaments and biological substances; Z79.899 Other long term (current) drug therapy; Z87.81 Personal history of (healed) traumatic fracture; Z98.890 Other specified postprocedural states
CPT/HCPCS: 0240U; 36415; 36600; 51702; 71045; 80048; 80051; 80053; 81001; 82728; 82803; 83605; 83735; 84484; 85025; 85027; 85379; 85610; 85730; 86140; 87040; 87086; 87088; 87186; 93005; 96374; 99285-25; A9270-GY; J0330; J1100; J1940; J2060; J2250; J2405; J2543; J2704; J3010; J3475; J3490; J7030; J7040; J7050; J7060; J7120; J8540